=== PATIENT | female | born 1955 | race Caucasian/White ===

== ENCOUNTER → 2016-09-18 | Outpatient (REF) | payer MEDICARE, OTHER ==
[~2016-09-18] MED LIST: ACET50TA PO; AMBIEN PO; ASPI81TA4 PO; B COTAB PO; BACL10TA2 PO; CEFT500T PO; CIMZ200K SC; COMBIVENT INHALER INH; CYMB60CA3 PO; INSUH10VL INJ; INSUH10VL SC; INSULANT SC; LANTINJ4 SC; LIAL1.2T PO; LYRI75CA PO; METF500T PO; METFORMIN PO; MULTIVIT PO; NEURONTIN PO; OMEG12002 PO; PLET50TA3 PO; PRED20TA PO; RAMI10CA PO; SILV1CRE19 TOP; SPIREVA INH; SPRIVA INH; Spiriva Inhaler; TALWIN NX PO; VICO7.5T11 PO; VIT E PO; VIT250TA PO; VITAMIN D PO; [UNRECOGNIZED DRUG - CODE] PO; [UNRECOGNIZED DRUG - CODE] TOP; fenofibrate PO
[2016-09-18 17:46] LABS: MAGNESIUM LEVEL 1.8 MG/DL (1.8-2.4)
== END ==
LOC: M SFHCCLAY 11:26
PROVIDERS: ATTEND Nurse Practitioner Family
DX: E78.4 Other hyperlipidemia (principal); E11.40 Type 2 diabetes mellitus with diabetic neuropathy, unspecified; Z98.890 Other specified postprocedural states; E55.9 Vitamin D deficiency, unspecified

== ENCOUNTER → 2016-09-21 | Outpatient (REF) | payer MEDICARE, OTHER | LOC: M SFHCCLAY 16:40 | PROVIDERS: ATTEND Nurse Practitioner Family | DX: E78.4 Other hyperlipidemia (principal); E11.40 Type 2 diabetes mellitus with diabetic neuropathy, unspecified; E55.9 Vitamin D deficiency, unspecified; Z98.890 Other specified postprocedural states | CPT/HCPCS: 82043; 84156; G0463 ==

== ENCOUNTER → 2017-01-07 | Outpatient (REF) | payer MEDICARE, OTHER ==
[~2017-01-07] MED LIST changes: +PERC10TA26 PO
== END ==
LOC: M LAB REF 14:50
PROVIDERS: ATTEND Podiatrist
DX: L97.512 Non-pressure chronic ulcer of other part of right foot with fat layer exposed (principal)

== ENCOUNTER 2017-01-14 16:35 | Emergency (ER) | payer MEDICARE, BC, OTHER ==
[~2017-01-14] VITALS: Ht 165.1 cm; Wt 145.4 kg
[~2017-01-14 16:35] MED LIST changes: -PERC10TA26 PO
[2017-01-14] MEDS ORDERED: PERC10TA26 PO (17:06)
[2017-01-14] MEDS ORDERED: methylPREDNISolone INJ 125 MG/2 ML VIAL (J2930) IV ONE (19:00)
[2017-01-14] MEDS ORDERED: ASPIRIN 81 MG CHEW TABLET PO ONE (19:00)
[2017-01-14] MEDS ORDERED: FUROSEMIDE 100 MG/10 ML VIAL (J1940) IV ONE (19:00)
[2017-01-14 19:44] LABS: ALBUMIN/GLOBULIN RATIO 0.75 (1.00-1.93); ANION GAP 9 MEQ/L (8-16); BILIRUBIN,DIRECT 0.1 MG/DL (0.0-0.2); BILIRUBIN,TOTAL 0.3 MG/DL (0.2-1.0); BLOOD UREA NITROGEN 30 MG/DL (7-18); CALCIUM LEVEL 8.4 MG/DL (8.8-10.2); CARBON DIOXIDE LEVEL 22 MEQ/L (21-32); CHLORIDE LEVEL 112 MEQ/L (98-107); GLOMERULAR FILTRATION RATE 40.7 (>45); GLUCOSE, FASTING 152 MG/DL (80-110); SODIUM LEVEL 143 MEQ/L (136-145)
[2017-01-14 19:45] LABS: POTASSIUM SERUM 5.7 MEQ/L (3.5-5.1)
[2017-01-14 19:48] LABS: ADD MORPHOLOGY? YES; BASO # 0.1 K/mm3 (0.0-0.2); BASO % 1.4 % (0.0-1.0); EOS # 0.4 K/mm3 (0.0-0.50); EOS % 4.9 % (0.0-3.0); LARGE UNSTAINED CELL # 0.3 K/mm3 (0.0-0.4); LARGE UNSTAINED CELL % 3.5 % (0.0-4.0); LYMPH # 1.8 K/mm3 (1.5-4.5); LYMPH % 16.8 % (24.0-44.0); MEAN CORPUSCULAR HEMOGLOBIN 24.2 pg (27.0-33.0); MEAN CORPUSCULAR HGB CONC 29.5 g/dl (32.0-36.5); MEAN CORPUSCULAR VOLUME 82.1 fl (80.0-96.0); MONO # 0.8 K/mm3 (0.0-0.8); MONO % 8.6 % (0.0-5.0); NEUTROPHILS # 5.7 K/mm3 (1.8-7.7); NEUTROPHILS % 64.7 % (36.0-66.0); PLATELET COUNT, AUTOMATED 351 k/mm3 (150-450); RED CELL DISTRIBUTION WIDTH 14.7 % (11.5-14.5); WHITE BLOOD COUNT 8.8 K/mm3 (4.0-10.0)
[2017-01-14] MEDS: IPRATROPIUM 0.5MG/ALBUTEROL 2.5MG INH SOL UD 3ML (DUONEB)(J7620) NEB PRN ×2 (20:21→20:30)
[2017-01-14 20:30] VITALS: BP 148/78
[2017-01-14 20:37] LABS: ANISOCYTOSIS 1+; HYPOCHROMASIA 2+
--- NOTE | 2017-01-14 21:41 | REP ---
ABDOMINAL SERIES: Supine and erect views of the abdomen demonstrate no free air and no definite small bowel obstruction. Mild distention of the colon is noted with mild internal fecal material in the rectosigmoid colon. Metallic clips are seen in the right upper quadrant. There are degenerative changes of the spine. There is bibasilar fibroatelectatic change in each lung base. There is chronic elevation of the right hemidiaphragm. The heart is mildly enlarged. IMPRESSION: No free air and no definite small bowel obstruction. Mild distention of the colon with mild fecal material in the rectosigmoid. No acute infiltrate is seen in either lung. Signed by Ibrahima Avila MD 01/15/2017 12:36 P
--- NOTE | 2017-01-15 16:00 | ECGEPIP ---
Stationary ECG Study [facility] - ED Test Date: 2017-01-14 Pat Name: CARLOS BECKWITH Department: Room: - Gender: F Halal Butcher: KraftB: 1955 Requested By: HOLLY HO Order Number: [id number] Reading MD: Paulo Heard Measurements Intervals [place] Rate: 57 P: OK: 0 QRS: -31 QRSD: 98 T: 64 QT: 429 QTc: 418 Interpretive Statements SUPRAVENTRICULAR BRADYCARDIA INDETERMINATE AXIS LOW QRS VOLTAGE IN PRECORDIAL LEADS ANTEROSEPTAL MYOCARDIAL INFARCTION, PROBABLY OLD NO PRIORS Electronically Signed On 01-15-2017 16:00:22 EDT by Paulo Heard
== END 2017-01-14 21:09 | disposition home or self-care (01) ==
LOC: M ED 16:35
DX: R06.02 Shortness of breath (principal); E11.9 Type 2 diabetes mellitus without complications; I10 Essential (primary) hypertension; Z72.0 Tobacco use
CPT/HCPCS: 36415; 74022; 80048; 80076; 82550; 82553; 84484; 85025; 87040; 93005; 94640; 94760; 96374; 96375; 99284; J1940; J2930

== ENCOUNTER → 2017-03-20 | Outpatient (REF) | payer MEDICARE, OTHER ==
[~2017-03-20] MED LIST changes: +PERC10TA26 PO
== END ==
LOC: M SFHCCLAY 11:38
PROVIDERS: ATTEND Nurse Practitioner Family
DX: E11.69 Type 2 diabetes mellitus with other specified complication (principal); E78.5 Hyperlipidemia, unspecified; E55.9 Vitamin D deficiency, unspecified

== ENCOUNTER → 2017-03-20 | Outpatient (REF) | payer MEDICARE, OTHER ==
[2017-03-20 17:43] LABS: ALBUMIN 3.7 GM/DL (3.2-5.2); CALCIUM LEVEL 9.1 MG/DL (8.8-10.2); CREATININE FOR GFR 1.02 MG/DL (0.55-1.02); GLOMERULAR FILTRATION RATE 58.5 (>45); MAGNESIUM LEVEL 1.9 MG/DL (1.8-2.4); PHOSPHORUS LEVEL 5.4 MG/DL (2.5-4.9); POTASSIUM SERUM 4.8 MEQ/L (3.5-5.1)
== END ==
LOC: M LAB REF 16:36
PROVIDERS: ATTEND Internal Medicine Cardiovascular Disease
DX: I11.0 Hypertensive heart disease with heart failure (principal); E11.69 Type 2 diabetes mellitus with other specified complication; E78.5 Hyperlipidemia, unspecified; E55.9 Vitamin D deficiency, unspecified

== ENCOUNTER → 2017-03-29 | Outpatient (REF) | payer MEDICARE, OTHER | LOC: M LAB REF 16:26 | PROVIDERS: ATTEND Nurse Practitioner Family | DX: E11.65 Type 2 diabetes mellitus with hyperglycemia (principal); Z23 Encounter for immunization | CPT/HCPCS: 82043; 90686; G0008; G0463 ==

== ENCOUNTER → 2017-09-27 | Outpatient (REF) | payer MEDICARE, OTHER ==
[2017-09-27 16:33] LABS: HEMATOCRIT 39.3 % (36.0-47.0); HEMOGLOBIN 11.7 g/dl (12.0-15.5); MEAN CORPUSCULAR HEMOGLOBIN 22.1 pg (27.0-33.0); MEAN CORPUSCULAR HGB CONC 29.8 g/dl (32.0-36.5); MEAN CORPUSCULAR VOLUME 74.3 fl (80.0-96.0); PLATELET COUNT, AUTOMATED 336 10^3/uL (150-450); RED BLOOD COUNT 5.29 10^6/uL (4.00-5.40); RED CELL DISTRIBUTION WIDTH 21.2 % (11.5-14.5); WHITE BLOOD COUNT 6.5 10^3/uL (4.0-10.0)
[2017-09-27 16:48] LABS: ESTIMATED AVERAGE GLUCOSE 163 MG/DL (60-110); HEMOGLOBIN A1c 7.3 %
[2017-09-27 16:50] LABS: ALBUMIN 3.7 GM/DL (3.2-5.2); ALBUMIN/GLOBULIN RATIO 1.03 (1.00-1.93); ALKALINE PHOSPHATASE 82 U/L (45-117); ALT/SGPT 17 U/L (12-78); ANION GAP 7 MEQ/L (8-16); AST/SGOT 20 U/L (7-37); BILIRUBIN,TOTAL 0.4 MG/DL (0.2-1.0); BLOOD UREA NITROGEN 30 MG/DL (7-18); CARBON DIOXIDE LEVEL 29 MEQ/L (21-32); CHLORIDE LEVEL 104 MEQ/L (98-107); CHOLESTEROL LEVEL 145 MG/DL (<200); CHOLESTEROL RISK RATIO 2.416 (<5); CREATININE FOR GFR 0.99 MG/DL (0.55-1.30); GLOMERULAR FILTRATION RATE > 60.0 (>45); GLUCOSE, FASTING 94 MG/DL (70-100); HDL CHOLESTEROL 60 MG/DL (>40); LDL CHOLESTEROL 58.8 MG/DL (<100); NON-HDL-C 85 MG/DL; POTASSIUM SERUM 4.9 MEQ/L (3.5-5.1); SODIUM LEVEL 140 MEQ/L (136-145); TOTAL PROTEIN 7.3 GM/DL (6.4-8.2); TRIGLYCERIDES LEVEL 131 MG/DL (<150)
[2017-09-27 16:51] LABS: TOTAL 25(OH) VITAMIN D 22.9 NG/ML (30.0-100.0)
[2017-09-27 17:04] LABS: MAU/CREAT RATIO 45.3 MCG/MG (0.0-30.0)
== END ==
LOC: M SFHCCLAY 10:32
DX: K21.9 Gastro-esophageal reflux disease without esophagitis (principal); I10 Essential (primary) hypertension; E11.40 Type 2 diabetes mellitus with diabetic neuropathy, unspecified; E78.5 Hyperlipidemia, unspecified; E55.9 Vitamin D deficiency, unspecified
CPT/HCPCS: 80053

== ENCOUNTER → 2017-10-29 | Outpatient (REF) | payer MEDICARE, OTHER ==
[2017-10-29 13:01] LABS: HEMATOCRIT 37.6 % (36.0-47.0); HEMOGLOBIN 11.2 g/dl (12.0-15.5); MEAN CORPUSCULAR HEMOGLOBIN 22.5 pg (27.0-33.0); MEAN CORPUSCULAR HGB CONC 29.8 g/dl (32.0-36.5); MEAN CORPUSCULAR VOLUME 75.7 fl (80.0-96.0); PLATELET COUNT, AUTOMATED 302 10^3/uL (150-450); RED BLOOD COUNT 4.97 10^6/uL (4.00-5.40); WHITE BLOOD COUNT 8.5 10^3/uL (4.0-10.0)
[2017-10-29 13:27] LABS: ANION GAP 6 MEQ/L (8-16); BLOOD UREA NITROGEN 19 MG/DL (7-18); C REACTIVE PROTEIN QUANTITATIV 2.67 MG/DL (0.00-0.30); CALCIUM LEVEL 8.6 MG/DL (8.8-10.2); CARBON DIOXIDE LEVEL 25 MEQ/L (21-32); CHLORIDE LEVEL 106 MEQ/L (98-107); CREATININE FOR GFR 0.89 MG/DL (0.55-1.30); GLOMERULAR FILTRATION RATE > 60.0 (>45); GLUCOSE, FASTING 147 MG/DL (70-100); POTASSIUM SERUM 4.7 MEQ/L (3.5-5.1); SODIUM LEVEL 137 MEQ/L (136-145)
[2017-10-29 13:37] LABS: ERYTHROCYTE SEDIMENTATION RATE 41 mm/hr (0-30)
[2017-10-29 13:42] LABS: ESTIMATED AVERAGE GLUCOSE 160 MG/DL (60-110); HEMOGLOBIN A1c 7.2 %
== END ==
LOC: M LAB REF 12:13
DX: E11.40 Type 2 diabetes mellitus with diabetic neuropathy, unspecified (principal)
CPT/HCPCS: 83036

== ENCOUNTER → 2017-11-07 | Outpatient (CLI) | payer MEDICARE, OTHER, BC ==
[2017-11-11 08:06] LABS: QUANTIFERON GOLD TB Negative (Negative); TB Test (QFT) Antigen 0.04 IU/mL (.); TB Test (QFT) Mitogen 6.41 IU/mL (.); TB Test (QFT) Nil 0.04 IU/mL (.)
== END ==
LOC: M LAB 08:11
DX: K50.80 Crohn's disease of both small and large intestine without complications (principal)

== ENCOUNTER → 2017-11-07 | Outpatient (CLI) | payer MEDICARE, BC, OTHER ==
[~2017-11-07] MED LIST changes: -ACET50TA PO; -AMBIEN PO; -ASPI81TA4 PO; -B COTAB PO; -BACL10TA2 PO; -CEFT500T PO; -CIMZ200K SC; -COMBIVENT INHALER INH; -CYMB60CA3 PO; -INSUH10VL INJ; -INSUH10VL SC; -INSULANT SC; -LANTINJ4 SC; -LIAL1.2T PO; -LYRI75CA PO; -METF500T PO; -METFORMIN PO; -MULTIVIT PO; -NEURONTIN PO; -OMEG12002 PO; -PERC10TA26 PO; -PLET50TA3 PO; -PRED20TA PO; +PROHANCE 279.3MG/ML 15ML VIAL (A9576) As Ordered; +PROHANCE 279.3MG/ML 5ML VIAL (A9576) As Ordered; -RAMI10CA PO; -SILV1CRE19 TOP; -SPIREVA INH; -SPRIVA INH; -Spiriva Inhaler; -TALWIN NX PO; -VICO7.5T11 PO; -VIT E PO; -VIT250TA PO; -VITAMIN D PO; -[UNRECOGNIZED DRUG - CODE] PO; -[UNRECOGNIZED DRUG - CODE] TOP; -fenofibrate PO
== END ==
LOC: M RAD 07:39
DX: R60.0 Localized edema (principal); E11.40 Type 2 diabetes mellitus with diabetic neuropathy, unspecified; K50.80 Crohn's disease of both small and large intestine without complications
CPT/HCPCS: A9576

== ENCOUNTER → 2017-12-24 | Outpatient (REF) | payer MEDICARE, OTHER | LOC: M LAB REF 17:15 | DX: E11.621 Type 2 diabetes mellitus with foot ulcer (principal); L97.522 Non-pressure chronic ulcer of other part of left foot with fat layer exposed | CPT/HCPCS: 87070; 87186 ==

== ENCOUNTER → 2017-12-24 | Outpatient (REF) | payer MEDICARE, OTHER ==
[2017-12-24 18:09] LABS: HEMATOCRIT 37.3 % (36.0-47.0); HEMOGLOBIN 10.5 g/dl (12.0-15.5); MEAN CORPUSCULAR HEMOGLOBIN 22.3 pg (27.0-33.0); MEAN CORPUSCULAR HGB CONC 28.2 g/dl (32.0-36.5); MEAN CORPUSCULAR VOLUME 79.2 fl (80.0-96.0); PLATELET COUNT, AUTOMATED 305 10^3/uL (150-450); RED BLOOD COUNT 4.71 10^6/uL (4.00-5.40); RED CELL DISTRIBUTION WIDTH 18.9 % (11.5-14.5); WHITE BLOOD COUNT 7.6 10^3/uL (4.0-10.0)
[2017-12-24 18:22] LABS: ALKALINE PHOSPHATASE 88 U/L (45-117); ALT/SGPT 19 U/L (12-78); ANION GAP 7 MEQ/L (8-16); AST/SGOT 16 U/L (7-37); BILIRUBIN,TOTAL 0.3 MG/DL (0.2-1.0); BLOOD UREA NITROGEN 21 MG/DL (7-18); CALCIUM LEVEL 8.4 MG/DL (8.8-10.2); CARBON DIOXIDE LEVEL 27 MEQ/L (21-32); CHLORIDE LEVEL 108 MEQ/L (98-107); CREATININE FOR GFR 0.96 MG/DL (0.55-1.30); GLOMERULAR FILTRATION RATE > 60.0 (>45); GLUCOSE, FASTING 160 MG/DL (70-100); SODIUM LEVEL 142 MEQ/L (136-145)
[2017-12-24 18:23] LABS: ALBUMIN 3.2 GM/DL (3.2-5.2); ALBUMIN/GLOBULIN RATIO 0.82 (1.00-1.93); C REACTIVE PROTEIN QUANTITATIV 0.72 MG/DL (0.00-0.30); TOTAL PROTEIN 7.1 GM/DL (6.4-8.2)
[2017-12-24 18:24] LABS: ESTIMATED AVERAGE GLUCOSE 160 MG/DL (60-110); HEMOGLOBIN A1c 7.2 %
[2017-12-24 19:22] LABS: ERYTHROCYTE SEDIMENTATION RATE 28 mm/hr (0-30)
== END ==
LOC: M LAB REF 17:30
DX: E11.621 Type 2 diabetes mellitus with foot ulcer (principal); L97.522 Non-pressure chronic ulcer of other part of left foot with fat layer exposed
CPT/HCPCS: 80053

== ENCOUNTER → 2018-01-30 | Outpatient (REF) | payer MEDICARE, OTHER ==
[2018-01-30 13:43] LABS: BASO # 0.1 10^3/uL (0.0-0.2); BASO % 1.7 % (0.0-1.0); EOS # 0.2 10^3/uL (0.0-0.50); EOS % 3.5 % (0.0-3.0); HEMATOCRIT 37.6 % (36.0-47.0); IMMATURE GRANULOCYTE % 0.3 % (0-3.0); LYMPH # 1.2 10^3/uL (1.5-4.5); LYMPH % 18.6 % (24.0-44.0); MEAN CORPUSCULAR HEMOGLOBIN 22.4 pg (27.0-33.0); MEAN CORPUSCULAR HGB CONC 29.3 g/dl (32.0-36.5); MEAN CORPUSCULAR VOLUME 76.7 fl (80.0-96.0); MONO # 0.8 10^3/uL (0.0-0.8); MONO % 12.8 % (0.0-5.0); NEUTROPHILS # 4.1 10^3/uL (1.8-7.7); NEUTROPHILS % 63.1 % (36.0-66.0); PLATELET COUNT, AUTOMATED 287 10^3/uL (150-450); RED CELL DISTRIBUTION WIDTH 19.8 % (11.5-14.5); WHITE BLOOD COUNT 6.5 10^3/uL (4.0-10.0)
[2018-01-30 14:06] LABS: ANION GAP 9 MEQ/L (8-16); BLOOD UREA NITROGEN 28 MG/DL (7-18); C REACTIVE PROTEIN QUANTITATIV 0.57 MG/DL (0.00-0.30); CALCIUM LEVEL 8.9 MG/DL (8.8-10.2); CARBON DIOXIDE LEVEL 27 MEQ/L (21-32); CHLORIDE LEVEL 106 MEQ/L (98-107); CREATININE FOR GFR 0.86 MG/DL (0.55-1.30); GLOMERULAR FILTRATION RATE > 60.0 (>45); GLUCOSE, FASTING 133 MG/DL (70-100); SODIUM LEVEL 142 MEQ/L (136-145)
[2018-01-30 14:11] LABS: POTASSIUM SERUM 5.6 MEQ/L (3.5-5.1)
[2018-01-30 14:28] LABS: ERYTHROCYTE SEDIMENTATION RATE 35 mm/hr (0-30)
== END ==
LOC: M SFHCPLAZ 10:58
DX: L97.529 Non-pressure chronic ulcer of other part of left foot with unspecified severity (principal); L97.522 Non-pressure chronic ulcer of other part of left foot with fat layer exposed (principal); E11.621 Type 2 diabetes mellitus with foot ulcer; E11.40 Type 2 diabetes mellitus with diabetic neuropathy, unspecified
CPT/HCPCS: 80048

== ENCOUNTER → 2018-02-14 | Outpatient (REF) | payer MEDICARE, OTHER ==
[2018-02-14 19:45] LABS: POTASSIUM SERUM 5.5 MEQ/L (3.5-5.1)
== END ==
LOC: M SFHCCLAY 11:33
DX: I10 Essential (primary) hypertension (principal)
CPT/HCPCS: 84132

== ENCOUNTER → 2018-09-26 | Outpatient (REF) | payer MEDICARE, OTHER ==
[~2018-09-26] MED LIST changes: +AMBIEN PO; +ASPI81TA4 PO; +B COTAB PO; +BACL10TA2 PO; +CEFT500T PO; +CIMZ200K SC; +COMBIVENT INHALER INH; +CYMB60CA3 PO; +INSUH10VL INJ; +INSUH10VL SC; +INSULANT SC; +LANTINJ4 SC; +LIAL1.2T PO; +LYRI75CA PO; +MAPA500T17 PO; +METF500T PO; +METFORMIN PO; +MULTIVIT PO; +NEURONTIN PO; +OMEG12002 PO; +PERC10TA26 PO; +PLET50TA3 PO; +PRED20TA PO; -PROHANCE 279.3MG/ML 15ML VIAL (A9576) As Ordered; -PROHANCE 279.3MG/ML 5ML VIAL (A9576) As Ordered; +RAMI10CA PO; +SILV1CRE19 TOP; +SPIREVA INH; +SPRIVA INH; +Spiriva Inhaler; +TALWIN NX PO; +VICO7.5T11 PO; +VIT E PO; +VIT250TA PO; +VITAMIN D PO; +[UNRECOGNIZED DRUG - CODE] PO; +[UNRECOGNIZED DRUG - CODE] TOP; +fenofibrate PO
[2018-09-26 18:08] LABS: BASO # 0.2 10^3/uL (0.0-0.2); BASO % 2.1 % (0.0-1.0); EOS # 0.2 10^3/uL (0.0-0.50); HEMATOCRIT 43.9 % (36.0-47.0); HEMOGLOBIN 13.3 g/dl (12.0-15.5); LYMPH # 1.7 10^3/uL (1.5-4.5); LYMPH % 21.7 % (24.0-44.0); MEAN CORPUSCULAR HEMOGLOBIN 26.1 pg (27.0-33.0); MEAN CORPUSCULAR HGB CONC 30.3 g/dl (32.0-36.5); MEAN CORPUSCULAR VOLUME 86.2 fl (80.0-96.0); MONO # 0.8 10^3/uL (0.0-0.8); MONO % 10.7 % (0.0-5.0); NEUTROPHILS # 4.8 10^3/uL (1.8-7.7); NEUTROPHILS % 62.1 % (36.0-66.0); PLATELET COUNT, AUTOMATED 366 10^3/uL (150-450); RED BLOOD COUNT 5.09 10^6/uL (4.00-5.40); WHITE BLOOD COUNT 7.7 10^3/uL (4.0-10.0)
[2018-09-26 18:14] LABS: ALBUMIN 3.7 GM/DL (3.2-5.2); ALT/SGPT 18 U/L (12-78); BILIRUBIN,TOTAL 0.4 MG/DL (0.2-1.0); BLOOD UREA NITROGEN 37 MG/DL (7-18); CALCIUM LEVEL 9.1 MG/DL (8.8-10.2); CARBON DIOXIDE LEVEL 29 MEQ/L (21-32); CHLORIDE LEVEL 106 MEQ/L (98-107); CHOLESTEROL LEVEL 134 MG/DL (<200); CHOLESTEROL RISK RATIO 2.126 (<5); CREATININE FOR GFR 1.42 MG/DL (0.55-1.30); FERRITIN 34 NG/ML (8-252); GLOMERULAR FILTRATION RATE 39.8 (>45); GLUCOSE, FASTING 79 MG/DL (70-100); HDL CHOLESTEROL 63 MG/DL (>40); IRON (FE) 56 UG/DL (50-170); LDL CHOLESTEROL 52 MG/DL (<100); MAGNESIUM LEVEL 1.9 MG/DL (1.8-2.4); NON-HDL-C 71 MG/DL; PERCENT SATURATION 10.3 % (13.2-45.0); POTASSIUM SERUM 5.3 MEQ/L (3.5-5.1); SODIUM LEVEL 141 MEQ/L (136-145); TOTAL IRON BINDING CAPACITY 543 UG/DL (250-450); TOTAL PROTEIN 7.2 GM/DL (6.4-8.2); TRIGLYCERIDES LEVEL 97 MG/DL (<150)
[2018-09-26 18:21] LABS: TOTAL 25(OH) VITAMIN D 27.3 NG/ML (30.0-100.0); VITAMIN B12 LEVEL 892 PG/ML (247-911)
[2018-09-26 18:22] LABS: FOLATE > 24.0 NG/ML (>5.4)
[2018-09-26 18:40] LABS: MAU/CREAT RATIO 115.9 MCG/MG (0.0-30.0)
[2018-09-26 18:50] LABS: HEMOGLOBIN A1c 6.4 %
== END ==
LOC: M SFHCCLAY 13:08
PROVIDERS: ATTEND Nurse Practitioner Family
DX: Z98.84 Bariatric surgery status (principal); E11.69 Type 2 diabetes mellitus with other specified complication; E78.5 Hyperlipidemia, unspecified

== ENCOUNTER 2018-11-25 07:16 | Day surgery (SDC) | payer MEDICARE, BC, OTHER ==
[~2018-11-25] VITALS: Ht 162.6 cm; Wt 131.5 kg
[~2018-11-25 07:16] MED LIST changes: +ALEV220T22 PO; +ASPI-161 PO; +B-COTAB10 PO; +COLE625TAB PO; +MAGN400T2 PO; +METF500T13 PO; +NS 1,000 ML IV ONE; +OMEG12004 PO; +RAMI1CAP26 PO; +STEL90IN SC; +VITA500C24 PO
[2018-11-25] MEDS ORDERED: IRBE75TA5 PO (08:17)
[2018-11-25] MEDS ORDERED: CHLO125TA PO (08:18)
[2018-11-25] MEDS ORDERED: TORS20TA2 PO (08:19)
--- NOTE | 2018-11-25 09:31 | ROOR ---
Patient Name: Mary Meyer Procedure Date: 11/25/2018 8:44 AM Date of : 1955 Age: 63 Room: [facility] Gender: Female Note Status: Finalized Procedure: Colonoscopy Indications: Follow-up of Crohn's disease of the small bowel and colon, Disease activity assessment of Crohn's disease of the small bowel and colon, Assess therapeutic response to therapy of Crohn's disease of the small bowel and colon Providers: Alhaji Albarran MD Referring MD: Lake Rodriguez MD Requesting Provider: Medicines: Monitored Anesthesia Care Complications: No immediate complications. Procedure: Pre-Anesthesia Assessment: - Prior to the procedure, a History and Physical was performed, and patient medications and allergies were reviewed. The patient is competent. The risks and benefits of the procedure and the sedation options and risks were discussed with the patient. All questions were answered and informed consent was obtained. Patient identification and proposed procedure were verified by the physician, the nurse and the anesthesiologist in the procedure room. Mental Status Examination: alert and oriented. Airway Examination: normal oropharyngeal airway and neck mobility. Respiratory Examination: clear to auscultation. CV Examination: normal. Prophylactic Antibiotics: The patient does not require prophylactic antibiotics. Prior Anticoagulants: The patient has taken no previous anticoagulant or antiplatelet agents. ASA Grade Assessment: II - A patient with mild systemic disease. After reviewing the risks and benefits, the patient was deemed in satisfactory condition to undergo the procedure. The anesthesia plan was to use monitored anesthesia care (MAC). Immediately prior to administration of medications, the patient was re-assessed for adequacy to receive sedatives. The heart rate, respiratory rate, oxygen saturations, blood pressure, adequacy of pulmonary ventilation, and response to care were monitored throughout the procedure. The physical status of the patient was re-assessed after the procedure. The Colonoscope was introduced through the anus and advanced to the ileocolonic anastomosis. The colonoscopy was performed without difficulty. The patient tolerated the procedure well. The quality of the bowel preparation was good. The terminal ileum and the rectum were photographed. Scope insertion time was 4 minutes. Scope withdrawal time was 8 minutes. The total duration of the procedure was 12 minutes. Findings: The perianal and digital rectal examinations were normal. Patchy inflammation, graded as Rutgeerts Score i3 (diffuse aphthous ileitis) and characterized by erythema, friability, granularity, linear erosions, pseudopolyps, aphthous ulcerations and serpentine ulcerations was found at 20 cm from the IC Anastomosis and in the mila-terminal Ileum. Biopsies were taken with a cold forceps for histology. Verification of patient identification for the specimen was done by the physician and nurse using the patient's name, date and medical record number. Estimated blood loss was minimal. Normal mucosa was found in the entire colon. Biopsies were taken with a cold forceps for histology. A 5 mm polyp was found in the descending colon. The polyp was sessile. The polyp was removed with a cold biopsy forceps. Resection and retrieval were complete. Non-bleeding external and internal hemorrhoids were found during retroflexion. The hemorrhoids were small. Impression: - Crohn's disease with ileitis. Biopsied. - Normal mucosa in the entire examined colon. Biopsied. - One 5 mm polyp in the descending colon, removed with a cold biopsy forceps. Resected and retrieved. - Non-bleeding external and internal hemorrhoids. Recommendation: - Patient has a contact number available for emergencies. The signs and symptoms of potential delayed complications were discussed with the patient. Return to normal activities tomorrow. Written discharge instructions were provided to the patient. - Resume previous diet. - Continue present medications. - Await pathology results. - Check IBD serology with inflammatory markers at appointment to be scheduled. - Return to GI clinic 2 - 3 weeks. Please call GI clinic @ [phone] for apppointment date and time. - Return to primary care physician. Alhaji Albarran MD Alhaji Albarran MD 11/25/2018 9:30:49 AM Electronically signed by Alhaji Albarran MD Number of Addenda: 0 Note Initiated On: 11/25/2018 8:44 AM Estimated Blood Loss: Estimated blood loss was minimal.
[2018-11-25 09:45] VITALS: BP 139/84
== END 2018-11-25 09:54 | disposition home or self-care (01) ==
LOC: M OPP 07:16
PROVIDERS: ATTEND Internal Medicine Gastroenterology
DX: K50.80 Crohn's disease of both small and large intestine without complications (principal); K63.5 Polyp of colon; K64.8 Other hemorrhoids

== ENCOUNTER → 2018-12-31 | Outpatient (CLI) | payer MEDICARE, BC, OTHER ==
[~2018-12-31] MED LIST changes: +CHLO125TA PO; +IRBE75TA5 PO; -NS 1,000 ML IV ONE; +TORS20TA2 PO
--- NOTE | 2018-12-31 16:17 | REP ---
Clinical: Chronic medical renal disease stage IV. Technique: Real time velarde scale ultrasound examination using curved array transducer. Findings: Bilateral kidneys demonstrate increased central sinus fat and suspected renovascular calcifications without hydronephrosis, nephrolithiasis, cystic or renal lesion. Right kidney measures 13.5 x 5.9 x 6.2 cm. Left kidney measures 12.9 x 5.2 x 5.6 cm. Bladder is normal in appearance and without wall thickening or mass lesion. Bilateral ureteral jets are identified. Prevoid bladder measures 15.7 x 10.7 x 8.3 cm (910 ml). Postvoid bladder measures 3.5 x 2.5 x 1.7 cm (8 ml). Postvoid residual equals 0.8%. Impression: Chronic medical renal disease. No hydronephrosis. Normal bladder. Electronically Signed by Duane Johnson MD 12/31/2018 04:09 P
== END ==
LOC: M RAD 15:19
PROVIDERS: ATTEND Internal Medicine Nephrology
DX: N18.4 Chronic kidney disease, stage 4 (severe) (principal); E11.22 Type 2 diabetes mellitus with diabetic chronic kidney disease; I12.9 Hypertensive chronic kidney disease with stage 1 through stage 4 chronic kidney disease, or unspecified chronic kidney disease

== ENCOUNTER → 2019-01-23 | Outpatient (CLI) | payer MEDICARE, OTHER, BC ==
[2019-01-23 17:00] LABS: BASO # 0.1 10^3/uL (0.0-0.2); EOS # 0.3 10^3/uL (0.0-0.50); EOS % 4.7 % (0.0-3.0); HEMATOCRIT 43.6 % (36.0-47.0); HEMOGLOBIN 13.8 g/dl (12.0-15.5); LYMPH # 1.3 10^3/uL (1.5-4.5); LYMPH % 18.1 % (24.0-44.0); MEAN CORPUSCULAR HGB CONC 31.7 g/dl (32.0-36.5); MEAN CORPUSCULAR VOLUME 85.3 fl (80.0-96.0); MONO # 0.9 10^3/uL (0.0-0.8); MONO % 13.2 % (0.0-5.0); NEUTROPHILS # 4.4 10^3/uL (1.8-7.7); NEUTROPHILS % 61.6 % (36.0-66.0); PLATELET COUNT, AUTOMATED 245 10^3/uL (150-450); RED BLOOD COUNT 5.11 10^6/uL (4.00-5.40); WHITE BLOOD COUNT 7.1 10^3/uL (4.0-10.0)
[2019-01-23 17:29] LABS: ALBUMIN 3.3 GM/DL (3.2-5.2); BILIRUBIN,DIRECT 0.1 MG/DL (0.0-0.2); BILIRUBIN,TOTAL 0.3 MG/DL (0.2-1.0); TOTAL PROTEIN 7.1 GM/DL (6.4-8.2)
== END ==
LOC: M LAB 16:07
PROVIDERS: ATTEND Internal Medicine Gastroenterology
DX: K50.818 Crohn's disease of both small and large intestine with other complication (principal)

== ENCOUNTER → 2019-09-30 | Outpatient (REF) | payer MEDICARE, OTHER ==
[~2019-09-30] MED LIST changes: +IRBE75TA4 PO; -IRBE75TA5 PO
[2019-09-30 16:40] LABS: HEMATOCRIT 47.1 % (36.0-47.0); HEMOGLOBIN 14.5 g/dl (12.0-15.5); MEAN CORPUSCULAR HEMOGLOBIN 27.5 pg (27.0-33.0); MEAN CORPUSCULAR HGB CONC 30.8 g/dl (32.0-36.5); MEAN CORPUSCULAR VOLUME 89.4 fl (80.0-96.0); PLATELET COUNT, AUTOMATED 256 10^3/uL (150-450); RED BLOOD COUNT 5.27 10^6/uL (4.00-5.40); WHITE BLOOD COUNT 5.8 10^3/uL (4.0-10.0)
[2019-09-30 17:07] LABS: ALBUMIN 3.3 GM/DL (3.2-5.2); ALT/SGPT 25 U/L (12-78); BILIRUBIN,TOTAL 0.7 MG/DL (0.2-1.0); BLOOD UREA NITROGEN 15 MG/DL (7-18); CALCIUM LEVEL 8.7 MG/DL (8.8-10.2); CARBON DIOXIDE LEVEL 32 MEQ/L (21-32); CHLORIDE LEVEL 102 MEQ/L (98-107); CHOLESTEROL LEVEL 159 MG/DL (<200); CHOLESTEROL RISK RATIO 2.694 (<5); CREATININE FOR GFR 0.89 MG/DL (0.55-1.30); FERRITIN 34 NG/ML (8-252); GLOMERULAR FILTRATION RATE > 60.0 (>45); GLUCOSE, FASTING 84 MG/DL (70-100); HDL CHOLESTEROL 59 MG/DL (>40); IRON (FE) 133 UG/DL (50-170); LDL CHOLESTEROL 57 MG/DL (<100); NON-HDL-C 100 MG/DL; PERCENT SATURATION 32.3 % (13.2-45.0); POTASSIUM SERUM 3.7 MEQ/L (3.5-5.1); SODIUM LEVEL 142 MEQ/L (136-145); TOTAL IRON BINDING CAPACITY 412 UG/DL (250-450); TRIGLYCERIDES LEVEL 214 MG/DL (<150)
[2019-09-30 17:14] LABS: VITAMIN B12 LEVEL 444 PG/ML (247-911)
[2019-09-30 17:16] LABS: FOLATE > 24.0 NG/ML (>5.4)
[2019-09-30 17:19] LABS: CREATININE, URINE < 13.0 MG/DL; MALB URINE SIEMENS 24.8 MG/L
[2019-09-30 17:28] LABS: HEMOGLOBIN A1c 6.8 %
== END ==
LOC: M SFHCCLAY 13:49
PROVIDERS: ATTEND Nurse Practitioner Family
DX: K21.9 Gastro-esophageal reflux disease without esophagitis (principal); Z23 Encounter for immunization; D64.9 Anemia, unspecified; E11.40 Type 2 diabetes mellitus with diabetic neuropathy, unspecified; E78.5 Hyperlipidemia, unspecified; I10 Essential (primary) hypertension; E55.9 Vitamin D deficiency, unspecified

== ENCOUNTER → 2019-10-01 | Outpatient (CLI) | payer MEDICARE, BC, OTHER ==
--- NOTE | 2019-10-01 14:08 | REP ---
REASON: Tobacco abuse. History of COPD. COMPARISON: None. As per the protocol only lung window images were sent to the read station for interpretation. There are no abnormal nodules, masses, or opacities. Grossly, the mediastinum and pulmonary ambika are within normal limits. Grossly, the imaged upper abdomen and imaged osseous structures are within normal limits. Spinal degenerative changes are noted. IMPRESSION: Lung RADS category 1 negative exam. Electronically Signed by Tom Paulino DO 10/01/2019 02:14 P
== END ==
LOC: M RAD 12:28
PROVIDERS: ATTEND Internal Medicine Pulmonary Disease
DX: Z12.2 Encounter for screening for malignant neoplasm of respiratory organs (principal); Z87.891 Personal history of nicotine dependence; J44.9 Chronic obstructive pulmonary disease, unspecified

== ENCOUNTER → 2020-02-26 | Outpatient (CLI) | payer MEDICARE, BC, OTHER | LOC: M LABSMTC 13:03 | PROVIDERS: ATTEND Family Medicine | DX: Z20.828 Contact with and (suspected) exposure to other viral communicable diseases (principal) | CPT/HCPCS: C9803; U0003 ==

== ENCOUNTER → 2020-07-18 | Outpatient (CLI) | payer MEDICARE, BC, OTHER | LOC: M LAB 12:19 | PROVIDERS: ATTEND Internal Medicine Endocrinology, Diabetes & Metabolism | DX: E11.65 Type 2 diabetes mellitus with hyperglycemia (principal) ==

== ENCOUNTER → 2020-08-09 | Outpatient (CLI) | payer MEDICARE, BC, OTHER ==
[2020-08-09 13:43] LABS: BASO # 0.1 10^3/uL (0.0-0.2); BASO % 1.3 % (0.0-1.0); EOS # 0.2 10^3/uL (0.0-0.5); EOS % 2.9 % (0.0-3.0); HEMATOCRIT 47.1 % (36.0-47.0); HEMOGLOBIN 14.7 g/dl (12.0-15.5); LYMPH # 1.2 10^3/uL (1.5-5.0); LYMPH % 20.2 % (24.0-44.0); MEAN CORPUSCULAR HEMOGLOBIN 27.2 pg (27.0-33.0); MEAN CORPUSCULAR HGB CONC 31.2 g/dl (32.0-36.5); MEAN CORPUSCULAR VOLUME 87.1 fl (80.0-96.0); MONO # 0.7 10^3/uL (0.0-0.8); MONO % 10.9 % (2.0-8.0); NEUTROPHILS % 64.2 % (36.0-66.0); PLATELET COUNT, AUTOMATED 225 10^3/uL (150-450); RED BLOOD COUNT 5.41 10^6/uL (4.00-5.40); WHITE BLOOD COUNT 6.2 10^3/uL (4.0-10.0)
[2020-08-09 14:18] LABS: ALBUMIN 3.5 GM/DL (3.2-5.2); ALT/SGPT 24 U/L (12-78); BILIRUBIN,DIRECT 0.1 MG/DL (0.0-0.2); BILIRUBIN,TOTAL 0.3 MG/DL (0.2-1.0); BLOOD UREA NITROGEN 16 MG/DL (7-18); C REACTIVE PROTEIN QUANTITATIV 0.46 MG/DL (0.00-0.30); CREATININE FOR GFR 0.93 MG/DL (0.55-1.30); GLOMERULAR FILTRATION RATE > 60.0 (>45); TOTAL PROTEIN 7.2 GM/DL (6.4-8.2)
[2020-08-09 16:11] LABS: ERYTHROCYTE SEDIMENTATION RATE 18 mm/hr (0-30)
== END ==
LOC: M LAB 12:52
PROVIDERS: ATTEND Internal Medicine Gastroenterology
DX: K50.818 Crohn's disease of both small and large intestine with other complication (principal)

== ENCOUNTER → 2020-09-22 | Outpatient (REF) | payer MEDICARE, OTHER ==
[2020-09-22 16:25] LABS: HEMATOCRIT 49.1 % (36.0-47.0); MEAN CORPUSCULAR HEMOGLOBIN 27.4 pg (27.0-33.0); MEAN CORPUSCULAR HGB CONC 30.5 g/dl (32.0-36.5); MEAN CORPUSCULAR VOLUME 89.6 fl (80.0-96.0); PLATELET COUNT, AUTOMATED 262 10^3/uL (150-450); RED BLOOD COUNT 5.48 10^6/uL (4.00-5.40); WHITE BLOOD COUNT 5.1 10^3/uL (4.0-10.0)
[2020-09-22 16:45] LABS: ALBUMIN 3.4 GM/DL (3.2-5.2); ALT/SGPT 25 U/L (12-78); BILIRUBIN,TOTAL 0.5 MG/DL (0.2-1.0); BLOOD UREA NITROGEN 16 MG/DL (7-18); CARBON DIOXIDE LEVEL 33 MEQ/L (21-32); CHLORIDE LEVEL 104 MEQ/L (98-107); CHOLESTEROL LEVEL 182 MG/DL (<200); CREATININE FOR GFR 0.92 MG/DL (0.55-1.30); GLOMERULAR FILTRATION RATE > 60.0 (>45); GLUCOSE, FASTING 127 MG/DL (70-100); HDL CHOLESTEROL 70 MG/DL (>40); LDL CHOLESTEROL 74 MG/DL (<100); NON-HDL-C 112 MG/DL; POTASSIUM SERUM 3.9 MEQ/L (3.5-5.1); SODIUM LEVEL 141 MEQ/L (136-145); TOTAL PROTEIN 7.1 GM/DL (6.4-8.2); TRIGLYCERIDES LEVEL 190 MG/DL (<150)
[2020-09-22 16:53] LABS: TOTAL 25(OH) VITAMIN D 31.4 NG/ML (30.0-100.0)
== END ==
LOC: M SFHCCLAY 11:38
PROVIDERS: ATTEND Nurse Practitioner Family
DX: E78.5 Hyperlipidemia, unspecified (principal); I10 Essential (primary) hypertension; E11.40 Type 2 diabetes mellitus with diabetic neuropathy, unspecified; E55.9 Vitamin D deficiency, unspecified

== ENCOUNTER → 2021-02-03 | Outpatient (CLI) | payer MEDICARE, OTHER ==
[2021-02-07 12:10] LABS: ANTINUCLEAR ANTIBODIES DIRECT Negative (Negative)
== END ==
LOC: M WUC 10:21
PROVIDERS: ATTEND Physician Assistant Medical
DX: L40.9 Psoriasis, unspecified (principal); M25.50 Pain in unspecified joint; H15.099 Other scleritis, unspecified eye
CPT/HCPCS: 11042; 36415; 85652; 86038; 86431; G0463

== ENCOUNTER → 2021-03-07 | Outpatient (REF) | payer MEDICARE, OTHER | LOC: M LAB REF 17:25 | PROVIDERS: ATTEND Internal Medicine Nephrology | DX: N18.31 Chronic kidney disease, stage 3a (principal) ==

== ENCOUNTER → 2021-03-29 | Outpatient (CLI) | payer MEDICARE, BC, OTHER ==
[~2021-03-29] MED LIST changes: +CYMB60CA4 PO
[2021-03-29 14:00] LABS: BLOOD UREA NITROGEN 17 MG/DL (7-18); CALCIUM LEVEL 8.9 MG/DL (8.8-10.2); CARBON DIOXIDE LEVEL 33 MEQ/L (21-32); CHLORIDE LEVEL 105 MEQ/L (98-107); CREATININE FOR GFR 0.94 MG/DL (0.55-1.30); GLOMERULAR FILTRATION RATE > 60.0 (>45); GLUCOSE, FASTING 114 MG/DL (70-100); POTASSIUM SERUM 4.3 MEQ/L (3.5-5.1); SODIUM LEVEL 140 MEQ/L (136-145)
== END ==
LOC: M LAB 12:38
PROVIDERS: ATTEND Family Medicine
DX: I11.9 Hypertensive heart disease without heart failure (principal)

== ENCOUNTER → 2021-04-05 | Outpatient (REF) | payer MEDICARE, BC, OTHER | LOC: M LAB REF 13:07 | PROVIDERS: ATTEND Nurse Practitioner Family | DX: N18.31 Chronic kidney disease, stage 3a (principal) ==

== ENCOUNTER → 2021-10-20 | Outpatient (CLI) | payer MEDICARE, BC, OTHER ==
[2021-10-20 15:04] LABS: BASO # 0.1 10^3/uL (0.0-0.2); BASO % 1.5 % (0.0-1.0); EOS # 0.2 10^3/uL (0.0-0.5); EOS % 3.3 % (0.0-3.0); HEMATOCRIT 47.6 % (36.0-47.0); HEMOGLOBIN 14.9 g/dl (12.0-15.5); LYMPH # 1.8 10^3/uL (1.5-5.0); LYMPH % 26.9 % (24.0-44.0); MEAN CORPUSCULAR HEMOGLOBIN 27.7 pg (27.0-33.0); MEAN CORPUSCULAR HGB CONC 31.3 g/dl (32.0-36.5); MEAN CORPUSCULAR VOLUME 88.6 fl (80.0-96.0); MONO # 0.9 10^3/uL (0.0-0.8); MONO % 13.1 % (2.0-8.0); NEUTROPHILS # 3.6 10^3/uL (1.5-8.5); NEUTROPHILS % 54.7 % (36.0-66.0); PLATELET COUNT, AUTOMATED 247 10^3/uL (150-450); RED BLOOD COUNT 5.37 10^6/uL (4.00-5.40); WHITE BLOOD COUNT 6.7 10^3/uL (4.0-10.0)
[2021-10-20 15:29] LABS: ALBUMIN 3.3 GM/DL (3.2-5.2); ALT/SGPT 24 U/L (12-78); BILIRUBIN,DIRECT 0.2 MG/DL (0.0-0.2); BILIRUBIN,TOTAL 0.5 MG/DL (0.2-1.0); BLOOD UREA NITROGEN 14 MG/DL (7-18); C REACTIVE PROTEIN QUANTITATIV 0.62 MG/DL (0.00-0.30); CREATININE FOR GFR 0.96 MG/DL (0.55-1.30); GLOMERULAR FILTRATION RATE > 60.0 (>45); TOTAL PROTEIN 7.2 GM/DL (6.4-8.2)
[2021-10-20 15:59] LABS: ERYTHROCYTE SEDIMENTATION RATE 10 mm/hr (0-30)
== END ==
LOC: M LAB 14:18
PROVIDERS: ATTEND Internal Medicine Gastroenterology
DX: K50.818 Crohn's disease of both small and large intestine with other complication (principal)

== ENCOUNTER → 2021-12-12 | Outpatient (CLI) | payer MEDICARE, BC, OTHER | LOC: M WHC 13:48 | PROVIDERS: ATTEND Family Medicine | DX: Z12.31 Encounter for screening mammogram for malignant neoplasm of breast (principal); Z78.0 Asymptomatic menopausal state; M85.851 Other specified disorders of bone density and structure, right thigh; M85.852 Other specified disorders of bone density and structure, left thigh ==

== ENCOUNTER → 2021-12-23 | Outpatient (CLI) | payer MEDICARE, BC, OTHER | LOC: M SLEEP 20:00 | PROVIDERS: ATTEND Internal Medicine Pulmonary Disease | DX: G47.33 Obstructive sleep apnea (adult) (pediatric) (principal); G47.61 Periodic limb movement disorder ==

== ENCOUNTER → 2022-02-08 | Outpatient (CLI) | payer MEDICARE, BC, OTHER ==
[~2022-02-08] MED LIST changes: +ALLO100T; +ANOR1AER; +COLE625T; +COLE625T17 PO; -COLE625TAB PO; +GABA600T4; +INSULIN PUMP; +POTA-136; +PREG150C; +PROV100T25 PO; +ROPI1TAB3; +SUCR1TAB56; +TALWIN NX; +TORS10TA3 PO; +VITA100093 PO; +VITA400T26 PO; +VITMTA PO; +ZOLP5TAB
== END ==
LOC: M LABSMTC 10:21
PROVIDERS: ATTEND Anesthesiology
DX: Z01.818 Encounter for other preprocedural examination (principal); Z11.52 Encounter for screening for COVID-19

== ENCOUNTER 2022-02-13 10:53 | Day surgery (SDC) | payer MEDICARE, BC, OTHER ==
[~2022-02-13] VITALS: Ht 160 cm; Wt 149.2 kg
[~2022-02-13 10:53] MED LIST changes: +LIDOCAINE 2% 100MG/5ML SDV (FOR ANES.) As Ordered ONE; +NS 1,000 ML IV ONE; +fentaNYL 100 MCG/2 ML INJECTION As Ordered ONE; +propofoL 200 MG/20 ML VIAL As Ordered ONE
[2022-02-13] MEDS ORDERED: propofoL 200 MG/20 ML VIAL As Ordered ONE (13:36)
[2022-02-13 14:20] VITALS: BP 142/74
== END 2022-02-13 14:30 | disposition home or self-care (01) ==
LOC: M OPP 10:53
PROVIDERS: ATTEND Internal Medicine Gastroenterology
DX: K50.10 Crohn's disease of large intestine without complications (principal); K50.00 Crohn's disease of small intestine without complications; K64.4 Residual hemorrhoidal skin tags; K64.8 Other hemorrhoids; K63.89 Other specified diseases of intestine; K52.9 Noninfective gastroenteritis and colitis, unspecified; K29.70 Gastritis, unspecified, without bleeding; Z98.84 Bariatric surgery status; Z79.4 Long term (current) use of insulin; Z79.51 Long term (current) use of inhaled steroids; Z79.891 Long term (current) use of opiate analgesic; Z79.899 Other long term (current) drug therapy; Z88.5 Allergy status to narcotic agent; Z88.8 Allergy status to other drugs, medicaments and biological substances; Z87.891 Personal history of nicotine dependence; Z86.19 Personal history of other infectious and parasitic diseases; I51.9 Heart disease, unspecified; E11.40 Type 2 diabetes mellitus with diabetic neuropathy, unspecified; F32.9 Major depressive disorder, single episode, unspecified; F41.9 Anxiety disorder, unspecified; G47.30 Sleep apnea, unspecified; Z99.89 Dependence on other enabling machines and devices; K74.60 Unspecified cirrhosis of liver; M79.7 Fibromyalgia; M14.672 Charcot's joint, left ankle and foot; G25.81 Restless legs syndrome
CPT/HCPCS: 43239; 45380; 88305; J3010

== ENCOUNTER 2022-03-06 09:51 | Emergency (ER) | payer MEDICARE, BC, OTHER ==
[~2022-03-06] VITALS: Ht 160 cm; Wt 153.9 kg
[~2022-03-06 09:51] MED LIST changes: -ALLO100T; +ALLO100T PO; -ANOR1AER; +ANOR1AER INH; -COLE625T; +COLE625T PO; -LIDOCAINE 2% 100MG/5ML SDV (FOR ANES.) As Ordered ONE; -NS 1,000 ML IV ONE; -POTA-136; +POTA-136 PO; -PREG150C; +PREG150C PO; -ROPI1TAB3; +ROPI1TAB3 PO; -SUCR1TAB56; +SUCR1TAB56 PO; -ZOLP5TAB; +ZOLP5TAB PO; -fentaNYL 100 MCG/2 ML INJECTION As Ordered ONE; -propofoL 200 MG/20 ML VIAL As Ordered ONE
[2022-03-06 10:45] LABS: BASO # 0.1 10^3/uL (0.0-0.2); BASO % 1.7 % (0.0-1.0); EOS # 0.3 10^3/uL (0.0-0.5); EOS % 4.4 % (0.0-3.0); HEMATOCRIT 47.1 % (36.0-47.0); HEMOGLOBIN 13.9 g/dl (12.0-15.5); LYMPH # 1.1 10^3/uL (1.5-5.0); MEAN CORPUSCULAR HEMOGLOBIN 24.9 pg (27.0-33.0); MEAN CORPUSCULAR HGB CONC 29.5 g/dl (32.0-36.5); MEAN CORPUSCULAR VOLUME 84.3 fl (80.0-96.0); MONO # 0.7 10^3/uL (0.0-0.8); MONO % 11.2 % (2.0-8.0); NEUTROPHILS # 4.1 10^3/uL (1.5-8.5); NEUTROPHILS % 64.1 % (36.0-66.0); PLATELET COUNT, AUTOMATED 255 10^3/uL (150-450); RED BLOOD COUNT 5.59 10^6/uL (4.00-5.40); WHITE BLOOD COUNT 6.3 10^3/uL (4.0-10.0)
[2022-03-06] MEDS ORDERED: APIXABAN 5 MG TAB (ELIQUIS) PO ONE (10:55)
[2022-03-06] MEDS ORDERED: DIGOXIN INJ 0.5 MG/2 ML AMP (J1160) IV STA (10:56)
[2022-03-06] MEDS ORDERED: SPIRONOLACTONE 12.5MG PER 1/2 TABLET PO ONE (11:00)
[2022-03-06] MEDS ORDERED: atenoloL 25 MG TAB PO ONE ×2 (11:00→13:10)
[2022-03-06 11:17] LABS: RSV AMPLIFICATION NEGATIVE (NEGATIVE)
[2022-03-06 11:32] LABS: BLOOD UREA NITROGEN 17 MG/DL (7-18); CALCIUM LEVEL 8.8 MG/DL (8.8-10.2); CARBON DIOXIDE LEVEL 31 MEQ/L (21-32); CHLORIDE LEVEL 105 MEQ/L (98-107); CREATININE FOR GFR 0.89 MG/DL (0.55-1.30); GLOMERULAR FILTRATION RATE > 60.0 (>45); GLUCOSE, FASTING 60 MG/DL (70-100); MAGNESIUM LEVEL 2.1 MG/DL (1.8-2.4); NT-PRO BNP 278 PG/ML (<125); POTASSIUM SERUM 4.4 MEQ/L (3.5-5.1); SODIUM LEVEL 138 MEQ/L (136-145)
[2022-03-06] MEDS ORDERED: DIGOXIN INJ 0.5 MG/2 ML AMP (J1160) IV ONE ×2 (13:10→14:40)
[2022-03-06] MEDS ORDERED: PERCOCET 5MG/325MG TAB PO ONE (13:10)
[2022-03-06 13:24] VITALS: BP 149/101
[2022-03-06] MEDS ORDERED: TORS10TA3 PO (16:23)
[2022-03-06] MEDS ORDERED: TORS20TA2 PO (16:27)
[2022-03-06] MEDS ORDERED: SPIR-10 PO (16:27)
[2022-03-06] MEDS ORDERED: DIGO0.253 PO (16:27)
[2022-03-06] MEDS ORDERED: ATEN50TA2 PO (16:27)
[2022-03-06] MEDS ORDERED: ELIQ5TAB PO (16:27)
[2022-03-06 16:31] VITALS: BP 124/61
== END 2022-03-06 17:09 | disposition home or self-care (01) ==
LOC: EDBD 09:51 → M ED 09:51
DX: I48.91 Unspecified atrial fibrillation (principal); I50.9 Heart failure, unspecified; E11.9 Type 2 diabetes mellitus without complications; I11.0 Hypertensive heart disease with heart failure; E78.5 Hyperlipidemia, unspecified; J44.9 Chronic obstructive pulmonary disease, unspecified; G47.33 Obstructive sleep apnea (adult) (pediatric); Z88.5 Allergy status to narcotic agent; Z88.8 Allergy status to other drugs, medicaments and biological substances; Z98.84 Bariatric surgery status
CPT/HCPCS: 71045; 80048; 83735; 83880; 84443; 84484; 85025; 87631; 93005; 93041; 94760; 96374; 96375; 96376; 99285; J1160

== ENCOUNTER 2022-03-13 16:03 | Inpatient (IN) | payer MEDICARE, OTHER, BC ==
[~2022-03-13] VITALS: Ht 160 cm; Wt 150.9 kg
[~2022-03-13 16:03] MED LIST changes: +ATEN50TA2 PO; +DIGO0.253 PO; +ELIQ5TAB PO; +SPIR-10 PO
[2022-03-13 17:19] LABS: BASO # 0.1 10^3/uL (0.0-0.2); BASO % 1.7 % (0.0-1.0); EOS # 0.3 10^3/uL (0.0-0.5); EOS % 4.1 % (0.0-3.0); LYMPH # 1.4 10^3/uL (1.5-5.0); LYMPH % 18.2 % (24.0-44.0); MEAN CORPUSCULAR HGB CONC 29.2 g/dl (32.0-36.5); MEAN CORPUSCULAR VOLUME 85.6 fl (80.0-96.0); MONO # 0.9 10^3/uL (0.0-0.8); MONO % 11.5 % (2.0-8.0); NEUTROPHILS # 4.8 10^3/uL (1.5-8.5); PLATELET COUNT, AUTOMATED 298 10^3/uL (150-450); RED BLOOD COUNT 5.61 10^6/uL (4.00-5.40); WHITE BLOOD COUNT 7.6 10^3/uL (4.0-10.0)
[2022-03-13 17:48] LABS: CPK CREATINE PHOSPHOKINASE 150 U/L (26-192)
[2022-03-13 17:51] LABS: ALBUMIN 3.2 GM/DL (3.2-5.2); ALT/SGPT 24 U/L (12-78); BILIRUBIN,DIRECT < 0.1 MG/DL (0.0-0.2); BILIRUBIN,TOTAL 0.3 MG/DL (0.2-1.0); BLOOD UREA NITROGEN 28 MG/DL (7-18); CALCIUM LEVEL 8.7 MG/DL (8.8-10.2); CARBON DIOXIDE LEVEL 34 MEQ/L (21-32); CHLORIDE LEVEL 105 MEQ/L (98-107); CREATININE FOR GFR 1.44 MG/DL (0.55-1.30); GLOMERULAR FILTRATION RATE 38.7 (>45); GLUCOSE, FASTING 93 MG/DL (70-100); NT-PRO BNP 1131 PG/ML (<125); POTASSIUM SERUM 4.7 MEQ/L (3.5-5.1); SODIUM LEVEL 141 MEQ/L (136-145)
[2022-03-13] MEDS ORDERED: FUROSEMIDE 100MG/10ML VIAL (J1940) IV ONE (18:50)
[2022-03-13 19:04] LABS: CPK CREATINE PHOSPHOKINASE 132 U/L (26-192)
[2022-03-13] MEDS ORDERED: GABA-282 PO (19:15)
[2022-03-13] MEDS ORDERED: ATEN50TA2 PO (19:15)
[2022-03-13] MEDS ORDERED: DIGO0.253 PO (19:15)
[2022-03-13] MEDS ORDERED: ELIQ5TAB PO (19:15)
[2022-03-13] MEDS ORDERED: GABA600T4 PO (19:24)
[2022-03-13] MEDS ORDERED: SPIR-10 PO (19:24)
[2022-03-13] MEDS ORDERED: TORS20TA2 PO (19:24)
[2022-03-13] MEDS ORDERED: HOME MED LIST COMPLETE! XX SCH (19:25)
[2022-03-13] MEDS ORDERED: PERCOCET 5MG/325MG TAB PO PRN (19:35)
[2022-03-13] MEDS ORDERED: COLESEVELAM 625 MG TAB (WELCHOL) PO PRN (19:35)
[2022-03-13] MEDS: SALMETEROL DISKUS 50MCG INHALER (SEREVENT) INH SCH (20:00)
[2022-03-13 20:05] LABS: APPEARANCE, URINE MANUAL CLEAR (CLEAR); COLOR, URINE MANUAL YELLOW (YELLOW)
[2022-03-13 20:07] LABS: BILIRUBIN, URINE MANUAL NEGATIVE (NEGATIVE); BLOOD URINE MANUAL NEGATIVE (NEGATIVE); GLUCOSE, URINE (UA) MANUAL NEGATIVE (NEGATIVE); KETONE, URINE MANUAL NEGATIVE (NEGATIVE); NITRITE, URINE MANUAL NEGATIVE (NEGATIVE); PROTEIN, URINE MANUAL TRACE mg/dL (NEGATIVE); SPECIFIC GRAVITY,URINE MANUAL 1.015 (1.002-1.035); UROBILINOGEN, URINE MANUAL NORMAL (NORMAL)
[2022-03-13 20:08] LABS: LEUKOCYTE ESTERASE, URINE MAN NEGATIVE (NEGATIVE)
[2022-03-13] MEDS ORDERED: GLUCAGON INJ 1MG VIAL SC PRN (20:15)
[2022-03-13] MEDS ORDERED: GLUCOSE 4GM CHEW TABLET PO PRN (20:15)
[2022-03-13] MEDS ORDERED: INSULIN LISPRO (NovoLOG) PER UNIT XX PRN (20:15)
[2022-03-13] MEDS ORDERED: DEXTROSE 50% 50 ML SYRINGE IV PRN (20:15)
[2022-03-13 20:22] LABS: AMORPHOUS SEDIMENT, URINE SMALL AMOUNT (NEGATIVE); BACTERIA, URINE NONE SEEN; CREATININE,RANDOM URINE 56.1 MG/DL; HYALINE CAST, URINE 0-1 /lpf (0-1); RBC, URINE 0-1 /hpf (0-3); SQUAMOUS EPITHELIAL CELL URINE SMALL AMOUNT /hpf (SMALL AMT); TOTAL PROTEIN,RANDOM URINE 27.9 MG/DL (0.0-12.0)
[2022-03-13] MEDS ORDERED: PREGABALIN 75 MG CAP(LYRICA) PO SCH (21:00)
[2022-03-13 21:30] VITALS: BP 145/94
[2022-03-13] MEDS: SUCRALFATE 1 GM TAB PO SCH (22:29)
[2022-03-13] MEDS: MAGNESIUM OXIDE 400MG TAB (MAG-OX) PO SCH (22:30)
[2022-03-13] MEDS: rOPINIRole 1MG TAB PO SCH (22:30)
[2022-03-13] MEDS: GABAPENTIN 300 MG CAP PO SCH (22:30)
[2022-03-13] MEDS: APIXABAN 5 MG TAB (ELIQUIS) PO SCH (22:30)
[2022-03-13] MEDS: zolPIDEM TARTRATE 5 MG TAB PO SCH (22:31)
[2022-03-13] MEDS: DOCUSATE SODIUM 100MG CAPSULE PO SCH (22:31)
[2022-03-14] VITALS (25 sets, daily range): BP systolic 94–135; BP diastolic 54–77; O2SAT 83–96
[2022-03-14 05:17] LABS: HEMATOCRIT 47.4 % (36.0-47.0); HEMOGLOBIN 13.7 g/dl (12.0-15.5); MEAN CORPUSCULAR HGB CONC 28.9 g/dl (32.0-36.5); MEAN CORPUSCULAR VOLUME 86.3 fl (80.0-96.0); PLATELET COUNT, AUTOMATED 288 10^3/uL (150-450); RED BLOOD COUNT 5.49 10^6/uL (4.00-5.40); WHITE BLOOD COUNT 6.8 10^3/uL (4.0-10.0)
[2022-03-14 05:28] LABS: INR 1.4; PROTHROMBIN TIME 17.4 SECONDS (12.5-14.5)
[2022-03-14 05:29] LABS: PARTIAL THROMBOPLASTIN TIME 46.6 SECONDS (24.8-34.2)
[2022-03-14 05:39] LABS: CALCIUM LEVEL 8.8 MG/DL (8.8-10.2); CREATININE FOR GFR 1.54 MG/DL (0.55-1.30); GLOMERULAR FILTRATION RATE 35.8 (>45); MAGNESIUM LEVEL 1.9 MG/DL (1.8-2.4)
[2022-03-14] MEDS: TIOTROPIUM INHALER/CAPSULE (SPIRIVA) INH SCH (07:37)
[2022-03-14] MEDS: SALMETEROL DISKUS 50MCG INHALER (SEREVENT) INH SCH ×2 (07:38→21:20)
[2022-03-14 08:14] LABS: DIGOXIN LEVEL 1.3 NG/ML (0.5-2.0)
[2022-03-14] MEDS: FUROSEMIDE 40MG/4ML VIAL (J1940) IV SCH ×3 (08:42→20:38)
[2022-03-14] MEDS: allopurinoL 100 MG TAB PO SCH (08:43)
[2022-03-14] MEDS: DULoxetine 30MG CAPSULE (CYMBALTA) PO SCH (08:44)
[2022-03-14] MEDS: GABAPENTIN 300 MG CAP PO SCH ×3 (08:44→20:36)
[2022-03-14] MEDS: MAGNESIUM OXIDE 400MG TAB (MAG-OX) PO SCH ×2 (08:45→21:00)
[2022-03-14] MEDS: POTASSIUM CHLORIDE 10MEQ SR TABLET PO SCH (08:45)
[2022-03-14] MEDS: rOPINIRole 1MG TAB PO SCH ×2 (08:45→20:35)
[2022-03-14] MEDS: APIXABAN 5 MG TAB (ELIQUIS) PO SCH ×2 (08:46→20:35)
[2022-03-14] MEDS: DOCUSATE SODIUM 100MG CAPSULE PO SCH ×2 (08:46→20:35)
[2022-03-14] MEDS: SUCRALFATE 1 GM TAB PO SCH ×3 (08:51→20:36)
[2022-03-14] MEDS ORDERED: SPIRONOLACTONE 12.5MG PER 1/2 TABLET PO SCH (09:00)
[2022-03-14] MEDS ORDERED: DIGOXIN 0.25 MG TAB PO SCH (09:00)
[2022-03-14] MEDS ORDERED: DIGOXIN 0.125 MG TAB PO SCH (09:00)
[2022-03-14] MEDS ORDERED: atenoloL 50 MG TAB PO SCH (09:00)
[2022-03-14 12:45] LABS: ABG BASE EXCESS 6.3 (-2.0-2.0); ABG HCO3 33.5 MEQ/L (22.0-26.0); ABG PARTIAL PRESSURE CO2 58.8 mmHg (35.0-45.0); ABG STANDARD HCO3 30.1 MEQ/L (22.0-26.0); ABG TOTAL CO2 35.3 MEQ/L (23.0-31.0); ABG pH (ARTERIAL) 7.373 UNITS (7.350-7.450)
[2022-03-14] MEDS ORDERED: ATROPINE SULF 1MG/10ML SYRINGE (J0461) IV STA (14:58)
[2022-03-14] MEDS: ACETAMINOPHEN TAB 650MG DOSE (2X325MG) PO PRN (16:50)
[2022-03-14] MEDS: zolPIDEM TARTRATE 5 MG TAB PO SCH (20:35)
[2022-03-14] MEDS: bisoproloL fumarate 5 MG TAB PO SCH (20:37)
[2022-03-15] VITALS (14 sets, daily range): BP systolic 92–134; BP diastolic 53–60; O2SAT 88–97
[2022-03-15] MEDS: UNRESOLVED CLARIFICATION ENTRY XX SCH (00:01)
[2022-03-15] MEDS: ACETAMINOPHEN TAB 650MG DOSE (2X325MG) PO PRN (04:46)
[2022-03-15] MEDS ORDERED: BISOPROLOL FUM 2.5 MG PER 1/2TAB PO ONE (05:05)
[2022-03-15 06:07] LABS: HEMATOCRIT 44.5 % (36.0-47.0); HEMOGLOBIN 13.2 g/dl (12.0-15.5); MEAN CORPUSCULAR HGB CONC 29.7 g/dl (32.0-36.5); MEAN CORPUSCULAR VOLUME 84.3 fl (80.0-96.0); PLATELET COUNT, AUTOMATED 295 10^3/uL (150-450); RED BLOOD COUNT 5.28 10^6/uL (4.00-5.40); WHITE BLOOD COUNT 7.8 10^3/uL (4.0-10.0)
[2022-03-15 06:43] LABS: CALCIUM LEVEL 8.8 MG/DL (8.8-10.2); CREATININE FOR GFR 1.53 MG/DL (0.55-1.30); POTASSIUM SERUM 4.3 MEQ/L (3.5-5.1)
[2022-03-15 06:44] LABS: MAGNESIUM LEVEL 2.1 MG/DL (1.8-2.4)
[2022-03-15] MEDS: SALMETEROL DISKUS 50MCG INHALER (SEREVENT) INH SCH ×2 (07:39→20:00)
[2022-03-15] MEDS: TIOTROPIUM INHALER/CAPSULE (SPIRIVA) INH SCH (07:39)
[2022-03-15] MEDS: bisoproloL fumarate 5 MG TAB PO SCH (08:12)
[2022-03-15] MEDS: rOPINIRole 1MG TAB PO SCH ×3 (09:00→21:59)
[2022-03-15] MEDS: DULoxetine 30MG CAPSULE (CYMBALTA) PO SCH ×2 (09:00→15:25)
[2022-03-15] MEDS: FUROSEMIDE 40MG/4ML VIAL (J1940) IV SCH ×2 (09:00→15:25)
[2022-03-15] MEDS ORDERED: NS 500 ML IV ONE (09:35)
[2022-03-15] MEDS: MAGNESIUM OXIDE 400MG TAB (MAG-OX) PO SCH ×2 (09:37→21:58)
[2022-03-15] MEDS: SUCRALFATE 1 GM TAB PO SCH ×3 (09:37→21:59)
[2022-03-15] MEDS: DOCUSATE SODIUM 100MG CAPSULE PO SCH ×2 (09:37→21:59)
[2022-03-15] MEDS: APIXABAN 5 MG TAB (ELIQUIS) PO SCH ×2 (09:38→21:59)
[2022-03-15] MEDS: POTASSIUM CHLORIDE 10MEQ SR TABLET PO SCH (09:38)
[2022-03-15] MEDS: GABAPENTIN 300 MG CAP PO SCH ×3 (09:38→21:58)
[2022-03-15] MEDS: allopurinoL 100 MG TAB PO SCH (10:38)
[2022-03-15] MEDS ORDERED: PERCOCET 5MG/325MG TAB PO ONE (14:45)
[2022-03-15] MEDS: zolPIDEM TARTRATE 5 MG TAB PO SCH (21:00)
[2022-03-16] VITALS (13 sets, daily range): BP systolic 111–145; BP diastolic 53–83; PULSE 117; O2SAT 95–97
[2022-03-16] MEDS ORDERED: GABAPENTIN 300 MG CAP PO ONE (03:55)
[2022-03-16] MEDS: ACETAMINOPHEN TAB 650MG DOSE (2X325MG) PO PRN (04:15)
[2022-03-16 05:07] LABS: HEMATOCRIT 48.5 % (36.0-47.0); HEMOGLOBIN 13.5 g/dl (12.0-15.5); MEAN CORPUSCULAR HEMOGLOBIN 25.2 pg (27.0-33.0); MEAN CORPUSCULAR HGB CONC 27.8 g/dl (32.0-36.5); MEAN CORPUSCULAR VOLUME 90.5 fl (80.0-96.0); PLATELET COUNT, AUTOMATED 273 10^3/uL (150-450); RED BLOOD COUNT 5.36 10^6/uL (4.00-5.40); WHITE BLOOD COUNT 7.2 10^3/uL (4.0-10.0)
[2022-03-16 05:41] LABS: CALCIUM LEVEL 8.7 MG/DL (8.8-10.2); CREATININE FOR GFR 1.47 MG/DL (0.55-1.30); GLOMERULAR FILTRATION RATE 37.7 (>45); MAGNESIUM LEVEL 2.2 MG/DL (1.8-2.4); POTASSIUM SERUM 4.2 MEQ/L (3.5-5.1)
[2022-03-16] MEDS: SALMETEROL DISKUS 50MCG INHALER (SEREVENT) INH SCH ×2 (07:52→19:56)
[2022-03-16] MEDS: TIOTROPIUM INHALER/CAPSULE (SPIRIVA) INH SCH (07:52)
[2022-03-16] MEDS: UNRESOLVED CLARIFICATION ENTRY XX SCH (08:00)
[2022-03-16] MEDS ORDERED: PERCOCET 5MG/325MG TAB PO ONE (08:10)
[2022-03-16] MEDS ORDERED: BISOPROLOL FUM 2.5 MG PER 1/2TAB PO ONE (08:30)
[2022-03-16] MEDS: SUCRALFATE 1 GM TAB PO SCH ×3 (08:32→20:52)
[2022-03-16] MEDS: POTASSIUM CHLORIDE 10MEQ SR TABLET PO SCH (08:33)
[2022-03-16] MEDS: APIXABAN 5 MG TAB (ELIQUIS) PO SCH ×2 (08:33→20:53)
[2022-03-16] MEDS: DOCUSATE SODIUM 100MG CAPSULE PO SCH ×2 (08:33→20:52)
[2022-03-16] MEDS: GABAPENTIN 300 MG CAP PO SCH ×3 (08:33→20:53)
[2022-03-16] MEDS: MAGNESIUM OXIDE 400MG TAB (MAG-OX) PO SCH ×2 (08:33→20:52)
[2022-03-16] MEDS: allopurinoL 100 MG TAB PO SCH (08:37)
[2022-03-16] MEDS ORDERED: FUROSEMIDE 40MG/4ML VIAL (J1940) IV ONE (08:45)
[2022-03-16] MEDS: FUROSEMIDE 40MG/4ML VIAL (J1940) IV SCH ×2 (10:09→15:29)
[2022-03-16] MEDS: SODIUM CHLORIDE NASAL 0.65% SPRAY BTL (OCEAN) SCH ×2 (12:46→20:53)
[2022-03-16] MEDS ORDERED: BISOPROLOL FUM 2.5 MG PER 1/2TAB PO PRN (15:00)
[2022-03-16] MEDS: rOPINIRole 1MG TAB PO SCH ×2 (15:28→21:00)
[2022-03-16] MEDS: DULoxetine 30MG CAPSULE (CYMBALTA) PO SCH (15:34)
[2022-03-16] MEDS: zolPIDEM TARTRATE 5 MG TAB PO SCH (20:53)
[2022-03-17] VITALS (7 sets, daily range): BP systolic 122–140; BP diastolic 56–70; O2SAT 94–99
[2022-03-17] MEDS: UNRESOLVED CLARIFICATION ENTRY XX SCH (00:32)
[2022-03-17 06:29] LABS: HEMATOCRIT 46.1 % (36.0-47.0); HEMOGLOBIN 13.1 g/dl (12.0-15.5); MEAN CORPUSCULAR HEMOGLOBIN 24.7 pg (27.0-33.0); MEAN CORPUSCULAR HGB CONC 28.4 g/dl (32.0-36.5); PLATELET COUNT, AUTOMATED 270 10^3/uL (150-450); WHITE BLOOD COUNT 7.9 10^3/uL (4.0-10.0)
[2022-03-17 06:53] LABS: CALCIUM LEVEL 8.8 MG/DL (8.8-10.2); CREATININE FOR GFR 1.53 MG/DL (0.55-1.30); MAGNESIUM LEVEL 2.1 MG/DL (1.8-2.4); POTASSIUM SERUM 3.8 MEQ/L (3.5-5.1)
[2022-03-17] MEDS: SALMETEROL DISKUS 50MCG INHALER (SEREVENT) INH SCH (07:20)
[2022-03-17] MEDS: TIOTROPIUM INHALER/CAPSULE (SPIRIVA) INH SCH (07:20)
[2022-03-17] MEDS: DOCUSATE SODIUM 100MG CAPSULE PO SCH (08:44)
[2022-03-17] MEDS: POTASSIUM CHLORIDE 10MEQ SR TABLET PO SCH (08:44)
[2022-03-17] MEDS: MAGNESIUM OXIDE 400MG TAB (MAG-OX) PO SCH (08:44)
[2022-03-17] MEDS: SUCRALFATE 1 GM TAB PO SCH (08:45)
[2022-03-17] MEDS: allopurinoL 100 MG TAB PO SCH (08:45)
[2022-03-17] MEDS: APIXABAN 5 MG TAB (ELIQUIS) PO SCH (08:45)
[2022-03-17] MEDS: GABAPENTIN 300 MG CAP PO SCH (08:45)
[2022-03-17] MEDS: SODIUM CHLORIDE NASAL 0.65% SPRAY BTL (OCEAN) SCH (08:46)
[2022-03-17] MEDS ORDERED: FUROSEMIDE 100MG/10ML VIAL (J1940) IV SCH (09:00)
[2022-03-17] MEDS ORDERED: FURO1INJ14 IV (13:41)
[2022-03-17] MEDS ORDERED: FARX1TAB3 PO (13:41)
[2022-03-17] MEDS ORDERED: BISO5TAB14 PO (13:41)
[2022-03-17] MEDS ORDERED: METO25TA PO (13:41)
== END 2022-03-17 15:00 | disposition home health service (06) | DRG 291 ==
LOC: M ED 16:03 → M ED INP 18:49 → M OBS 21:32 → M PCU 21:37
PROVIDERS: ADMIT Internal Medicine; ATTEND Internal Medicine
DX: I11.0 Hypertensive heart disease with heart failure (principal); I50.33 Acute on chronic diastolic (congestive) heart failure; J96.21 Acute and chronic respiratory failure with hypoxia; N17.9 Acute kidney failure, unspecified; K50.90 Crohn's disease, unspecified, without complications; E66.2 Morbid (severe) obesity with alveolar hypoventilation; Z68.43 Body mass index [BMI] 50.0-59.9, adult; I48.91 Unspecified atrial fibrillation; E11.42 Type 2 diabetes mellitus with diabetic polyneuropathy; J44.9 Chronic obstructive pulmonary disease, unspecified; M10.9 Gout, unspecified; G25.81 Restless legs syndrome; I87.2 Venous insufficiency (chronic) (peripheral); K21.9 Gastro-esophageal reflux disease without esophagitis; E11.51 Type 2 diabetes mellitus with diabetic peripheral angiopathy without gangrene; Z90.49 Acquired absence of other specified parts of digestive tract; Z98.84 Bariatric surgery status; Z79.01 Long term (current) use of anticoagulants; Z79.899 Other long term (current) drug therapy; Z79.4 Long term (current) use of insulin; Z96.41 Presence of insulin pump (external) (internal); Z88.5 Allergy status to narcotic agent; Z88.8 Allergy status to other drugs, medicaments and biological substances; Z91.119 Patient's noncompliance with dietary regimen due to unspecified reason

== ENCOUNTER → 2022-03-28 | Outpatient (REF) | payer MEDICARE, OTHER ==
[~2022-03-28] MED LIST changes: +BISO5TAB14 PO; +FARX1TAB3 PO; +FURO1INJ14 IV; +GABA-282 PO; +GABA600T4 PO; +METO25TA PO
[2022-03-28 19:36] LABS: CALCIUM LEVEL 8.9 MG/DL (8.8-10.2); CREATININE FOR GFR 1.12 MG/DL (0.55-1.30); GLOMERULAR FILTRATION RATE 51.7 (>45); MAGNESIUM LEVEL 2.2 MG/DL (1.8-2.4); POTASSIUM SERUM 4.4 MEQ/L (3.5-5.1)
== END ==
LOC: M LABDRAWC 17:16
PROVIDERS: ATTEND Physician Assistant
DX: I50.32 Chronic diastolic (congestive) heart failure (principal)

== ENCOUNTER → 2022-03-28 | Outpatient (REF) | payer MEDICARE, OTHER ==
[2022-03-28 18:38] LABS: HEMATOCRIT 46.1 % (36.0-47.0); HEMOGLOBIN 13.5 g/dl (12.0-15.5); MEAN CORPUSCULAR HGB CONC 29.3 g/dl (32.0-36.5); MEAN CORPUSCULAR VOLUME 85.2 fl (80.0-96.0); PLATELET COUNT, AUTOMATED 238 10^3/uL (150-450); RED BLOOD COUNT 5.41 10^6/uL (4.00-5.40); WHITE BLOOD COUNT 7.8 10^3/uL (4.0-10.0)
[2022-03-28 21:33] LABS: HEMOGLOBIN A1c 6.6 %
[2022-03-28 21:42] LABS: CALCIUM LEVEL 8.4 MG/DL (8.8-10.2); CREATININE FOR GFR 1.14 MG/DL (0.55-1.30); GLOMERULAR FILTRATION RATE 50.6 (>45); POTASSIUM SERUM 4.6 MEQ/L (3.5-5.1)
[2022-03-28 21:43] LABS: ALBUMIN 3.1 GM/DL (3.2-5.2); BILIRUBIN,TOTAL 0.4 MG/DL (0.2-1.0); TOTAL PROTEIN 6.9 GM/DL (6.4-8.2)
[2022-03-28 21:44] LABS: FREE T4 1.08 NG/DL (0.76-1.46); THYROID STIMULATING HORMONE 1.19 uIU/ML (0.358-3.740)
[2022-03-28 22:00] LABS: CHOLESTEROL RISK RATIO 2.295 (<5); LDL CHOLESTEROL 56.2 MG/DL (<100); PERCENT SATURATION 9.3 % (13.2-45.0)
[2022-03-28 22:35] LABS: TOTAL 25(OH) VITAMIN D 43.5 NG/ML (30.0-100.0)
== END ==
LOC: M SFHCCLAY 15:01
PROVIDERS: ATTEND Nurse Practitioner Family
DX: F51.01 Primary insomnia (principal); L97.219 Non-pressure chronic ulcer of right calf with unspecified severity; E11.40 Type 2 diabetes mellitus with diabetic neuropathy, unspecified; E78.5 Hyperlipidemia, unspecified; I50.32 Chronic diastolic (congestive) heart failure; K50.918 Crohn's disease, unspecified, with other complication; G47.33 Obstructive sleep apnea (adult) (pediatric); E61.1 Iron deficiency; E55.9 Vitamin D deficiency, unspecified

== ENCOUNTER → 2022-03-30 | Outpatient (CLI) | payer MEDICARE, BC, OTHER | LOC: M RAD 14:53 → M LAB 14:53 | PROVIDERS: ATTEND Nurse Practitioner Adult Health | DX: I51.7 Cardiomegaly (principal); R91.8 Other nonspecific abnormal finding of lung field; J44.9 Chronic obstructive pulmonary disease, unspecified ==

== ENCOUNTER → 2022-06-13 | Outpatient (REF) | payer MEDICARE, OTHER ==
[2022-06-13 18:11] LABS: HEMOGLOBIN 13.5 g/dl (12.0-15.5); MEAN CORPUSCULAR HEMOGLOBIN 26.6 pg (27.0-33.0); MEAN CORPUSCULAR HGB CONC 29.3 g/dl (32.0-36.5); MEAN CORPUSCULAR VOLUME 90.7 fl (80.0-96.0); PLATELET COUNT, AUTOMATED 268 10^3/uL (150-450); RED BLOOD COUNT 5.07 10^6/uL (4.00-5.40); WHITE BLOOD COUNT 7.4 10^3/uL (4.0-10.0)
[2022-06-13 18:22] LABS: HEMOGLOBIN A1c 5.9 % (4.0-6.0)
[2022-06-13 18:33] LABS: ALBUMIN 3.1 G/DL (3.2-5.2); BILIRUBIN,TOTAL 0.2 MG/DL (0.3-1.2); CALCIUM LEVEL 8.9 MG/DL (8.3-10.6); CHOLESTEROL RISK RATIO 2.69 (<5); CREATININE FOR GFR 1.22 MG/DL (0.55-1.30); GLOMERULAR FILTRATION RATE 46.8 (>45); HDL CHOLESTEROL 56.4 MG/DL (>40); PERCENT SATURATION 12.3 % (13.2-45.0); TOTAL PROTEIN 6.6 G/DL (5.7-8.2)
[2022-06-13 18:36] LABS: FERRITIN 25.8 NG/ML (7.3-270.7)
[2022-06-14 14:40] LABS: TOTAL 25(OH) VITAMIN D 43.8 NG/ML (20.0-100.0)
== END ==
LOC: M SFHCCLAY 14:01
PROVIDERS: ATTEND Nurse Practitioner Family
DX: E11.40 Type 2 diabetes mellitus with diabetic neuropathy, unspecified (principal); E78.5 Hyperlipidemia, unspecified; E61.1 Iron deficiency; E55.9 Vitamin D deficiency, unspecified; N17.9 Acute kidney failure, unspecified

== ENCOUNTER → 2022-07-10 | Outpatient (CLI) | payer MEDICARE, OTHER, BC | LOC: M RAD 09:49 | PROVIDERS: ATTEND Physician Assistant | DX: L97.911 Non-pressure chronic ulcer of unspecified part of right lower leg limited to breakdown of skin (principal); R68.89 Other general symptoms and signs; I73.9 Peripheral vascular disease, unspecified ==

== ENCOUNTER → 2022-07-31 | Outpatient (CLI) | payer MEDICARE, BC, OTHER | LOC: M RAD 12:15 | PROVIDERS: ATTEND Physician Assistant | DX: L97.911 Non-pressure chronic ulcer of unspecified part of right lower leg limited to breakdown of skin (principal); I87.2 Venous insufficiency (chronic) (peripheral); M79.604 Pain in right leg ==

== ENCOUNTER → 2022-08-14 | Outpatient (POV) | payer MEDICARE, BC, OTHER ==
[~2022-08-14] VITALS: Ht 162.6 cm; Wt 139.0 kg
[2022-08-14 13:10] VITALS: BP 122/70
== END ==
LOC: M IRPOV 13:04
PROVIDERS: ATTEND Radiology Diagnostic Radiology
DX: E11.622 Type 2 diabetes mellitus with other skin ulcer (principal); L97.811 Non-pressure chronic ulcer of other part of right lower leg limited to breakdown of skin; K50.90 Crohn's disease, unspecified, without complications; E11.40 Type 2 diabetes mellitus with diabetic neuropathy, unspecified; I87.301 Chronic venous hypertension (idiopathic) without complications of right lower extremity; I50.9 Heart failure, unspecified; J44.9 Chronic obstructive pulmonary disease, unspecified; R60.0 Localized edema; Z79.899 Other long term (current) drug therapy; Z88.5 Allergy status to narcotic agent; Z88.8 Allergy status to other drugs, medicaments and biological substances

== ENCOUNTER → 2022-09-13 | Outpatient (CLI) | payer MEDICARE, BC, OTHER ==
[2022-09-13 11:24] LABS: BASO # 0.1 10^3/uL (0.0-0.2); BASO % 1.6 % (0.0-1.0); EOS # 0.3 10^3/uL (0.0-0.5); EOS % 4.5 % (0.0-3.0); HEMATOCRIT 43.8 % (36.0-47.0); HEMOGLOBIN 13.6 g/dl (12.0-15.5); LYMPH # 1.2 10^3/uL (1.5-5.0); LYMPH % 18.6 % (24.0-44.0); MEAN CORPUSCULAR HGB CONC 31.1 g/dl (32.0-36.5); MEAN CORPUSCULAR VOLUME 93.4 fl (80.0-96.0); MONO # 0.8 10^3/uL (0.0-0.8); MONO % 13.2 % (2.0-8.0); NEUTROPHILS # 3.8 10^3/uL (1.5-8.5); NEUTROPHILS % 61.8 % (36.0-66.0); PLATELET COUNT, AUTOMATED 262 10^3/uL (150-450); RED BLOOD COUNT 4.69 10^6/uL (4.00-5.40); WHITE BLOOD COUNT 6.2 10^3/uL (4.0-10.0)
[2022-09-13 11:49] LABS: ALBUMIN 3.2 G/DL (3.2-5.2); BILIRUBIN,DIRECT 0.1 MG/DL (<0.4); BILIRUBIN,TOTAL 0.4 MG/DL (0.3-1.2); C REACTIVE PROTEIN QUANTITATIV 0.9 MG/DL (<1.0); CREATININE FOR GFR 1.11 MG/DL (0.55-1.30); GLOMERULAR FILTRATION RATE 52.2 (>45); PERCENT SATURATION 12.2 % (13.2-45.0); TOTAL PROTEIN 6.6 G/DL (5.7-8.2)
[2022-09-13 11:59] LABS: ERYTHROCYTE SEDIMENTATION RATE 67 mm/hr (0-30)
== END ==
LOC: M LAB 10:34
PROVIDERS: ATTEND Internal Medicine Gastroenterology
DX: K50.818 Crohn's disease of both small and large intestine with other complication (principal)

== ENCOUNTER → 2022-09-13 | Outpatient (CLI) | payer MEDICARE, BC, OTHER ==
[2022-09-13 11:47] LABS: HEMOGLOBIN A1c 5.7 % (4.0-6.0)
[2022-09-13 11:50] LABS: CALCIUM LEVEL 9.1 MG/DL (8.3-10.6); CREATININE FOR GFR 1.07 MG/DL (0.55-1.30); GLOMERULAR FILTRATION RATE 54.5 (>45); POTASSIUM SERUM 4.8 MMOL/L (3.5-5.1)
[2022-09-13 11:54] LABS: TOTAL 25(OH) VITAMIN D 54.1 NG/ML (20.0-100.0)
== END ==
LOC: M LAB 10:38
PROVIDERS: ATTEND Nurse Practitioner Family
DX: E11.40 Type 2 diabetes mellitus with diabetic neuropathy, unspecified (principal); E55.9 Vitamin D deficiency, unspecified; I10 Essential (primary) hypertension

== ENCOUNTER → 2022-12-26 | Outpatient (CLI) | payer MEDICARE, BC, OTHER ==
[~2022-12-26] MED LIST changes: -ROPI1TAB3 PO; +ROPI1TAB73 PO
== END ==
LOC: M WHC 13:11
PROVIDERS: ATTEND Nurse Practitioner Family
DX: Z12.31 Encounter for screening mammogram for malignant neoplasm of breast (principal); R92.8 Other abnormal and inconclusive findings on diagnostic imaging of breast

== ENCOUNTER → 2023-03-21 | Outpatient (REF) | payer MEDICARE, OTHER ==
[~2023-03-21] MED LIST changes: -PREG150C PO; +PREG150C2 PO
[2023-03-21 17:26] LABS: BASO # 0.1 10^3/uL (0.0-0.2); BASO % 1.5 % (0.0-1.0); EOS # 0.3 10^3/uL (0.0-0.5); EOS % 3.4 % (0.0-3.0); HEMATOCRIT 44.9 % (36.0-47.0); HEMOGLOBIN 13.4 g/dl (12.0-15.5); LYMPH # 1.6 10^3/uL (1.5-5.0); LYMPH % 19.5 % (24.0-44.0); MEAN CORPUSCULAR HEMOGLOBIN 26.9 pg (27.0-33.0); MEAN CORPUSCULAR HGB CONC 29.8 g/dl (32.0-36.5); MONO # 0.7 10^3/uL (0.0-0.8); MONO % 8.7 % (2.0-8.0); NEUTROPHILS # 5.3 10^3/uL (1.5-8.5); NEUTROPHILS % 66.5 % (36.0-66.0); PLATELET COUNT, AUTOMATED 296 10^3/uL (150-450); RED BLOOD COUNT 4.99 10^6/uL (4.00-5.40)
== END ==
LOC: M SFHCCLAY 13:11
PROVIDERS: ATTEND Nurse Practitioner Family
DX: E11.40 Type 2 diabetes mellitus with diabetic neuropathy, unspecified (principal); I48.91 Unspecified atrial fibrillation; I10 Essential (primary) hypertension; E55.9 Vitamin D deficiency, unspecified; E78.5 Hyperlipidemia, unspecified; K50.918 Crohn's disease, unspecified, with other complication

== ENCOUNTER → 2023-10-02 | Outpatient (REF) | payer MEDICARE, OTHER, BC ==
[~2023-10-02] MED LIST changes: -ASPI-161 PO; +ASPI-615 PO; +IRBE75TA11 PO; -IRBE75TA4 PO; +RAMI10CA64 PO; -RAMI1CAP26 PO
[2023-10-02 18:29] LABS: PERCENT SATURATION 3.2 % (13.2-45.0)
[2023-10-02 18:32] LABS: FERRITIN 5.9 NG/ML (7.3-270.7)
== END ==
LOC: M LAB REF 17:22
PROVIDERS: ATTEND Nurse Practitioner Family
DX: D50.9 Iron deficiency anemia, unspecified (principal)

== ENCOUNTER → 2023-10-15 | Outpatient (REF) | payer MEDICARE, BC ==
[2023-10-15 18:00] LABS: ALBUMIN 2.9 G/DL (3.2-5.2); ALKALINE PHOSPHATASE 92 U/L (46-116); ALT/SGPT 17 U/L (7.0-40); AST/SGOT 19 U/L (<34); BILIRUBIN,TOTAL 0.5 MG/DL (0.3-1.2); BLOOD UREA NITROGEN 15 MG/DL (9-23); CALCIUM LEVEL 8.3 MG/DL (8.3-10.6); CARBON DIOXIDE LEVEL 30 MMOL/L (20-31); CHLORIDE LEVEL 104 MMOL/L (98-107); CHOLESTEROL LEVEL 116 MG/DL (<200); CHOLESTEROL RISK RATIO 2.65 (<5); CREATININE FOR GFR 0.92 MG/DL (0.55-1.30); GLOMERULAR FILTRATION RATE > 60.0 (>45); GLUCOSE, FASTING 134 MG/DL (74-106); HDL CHOLESTEROL 43.7 MG/DL (>40); LDL CHOLESTEROL 49.3 MG/DL (<100); NON-HDL-C 72.3 MG/DL; POTASSIUM SERUM 4.5 MMOL/L (3.5-5.1); SODIUM LEVEL 140 MMOL/L (136-145); TOTAL PROTEIN 6.2 G/DL (5.7-8.2); TRIGLYCERIDES LEVEL 115 MG/DL (<150)
[2023-10-15 18:03] LABS: FREE T4 0.98 NG/DL (0.89-1.76); THYROID STIMULATING HORMONE 1.251 uIU/ML (0.55-4.78)
[2023-10-15 18:04] LABS: TOTAL 25(OH) VITAMIN D 67.4 NG/ML (20.0-100.0)
[2023-10-15 18:11] LABS: HEMOGLOBIN A1c 5.8 % (4.0-6.0)
== END ==
LOC: M SFHCCLAY 13:36
PROVIDERS: ATTEND Nurse Practitioner Family
DX: E11.40 Type 2 diabetes mellitus with diabetic neuropathy, unspecified (principal); I11.0 Hypertensive heart disease with heart failure; E55.9 Vitamin D deficiency, unspecified; E78.5 Hyperlipidemia, unspecified; K50.918 Crohn's disease, unspecified, with other complication; I48.91 Unspecified atrial fibrillation; R11.0 Nausea; I50.32 Chronic diastolic (congestive) heart failure; K21.9 Gastro-esophageal reflux disease without esophagitis; J44.9 Chronic obstructive pulmonary disease, unspecified

== ENCOUNTER → 2023-10-15 | Outpatient (CLI) | payer MEDICARE, BC | LOC: M CLY 13:50 | PROVIDERS: ATTEND Internal Medicine Pulmonary Disease | DX: I51.7 Cardiomegaly (principal); J44.9 Chronic obstructive pulmonary disease, unspecified ==

== ENCOUNTER 2023-11-04 10:14 | Outpatient (CLI) | payer MEDICARE, BC ==
[~2023-11-04] VITALS: Ht 162.6 cm; Wt 129.0 kg
[~2023-11-04 10:14] MED LIST changes: +ALBUTEROL SULFATE 2.5MG/0.5ML INH NEB SOLN INH PRN; +EPINEPHrine INJ 1 MG/ML 1ML AMP IM PRN; +diphenhydrAMINE 50MG/ML VIAL IV PRN; +methylPREDNISolone 125MG 2ML VIAL IV PRN
[2023-11-04 10:40] VITALS: BP 138/78; O2SAT 97
[2023-11-04] MEDS: FERRIC CARBOXYMALTOSE INJ 750 MG in NS 250 ML (>50kg) IV ONE (10:58)
[2023-11-04] MEDS ORDERED: NS 1,000 ML IV SCH (11:00)
[2023-11-04 12:30] VITALS: BP 138/83; O2SAT 98
== END 2023-11-04 12:35 ==
LOC: M INFU 10:14
PROVIDERS: ATTEND Nurse Practitioner Family
DX: D50.9 Iron deficiency anemia, unspecified (principal); Z88.5 Allergy status to narcotic agent; Z88.8 Allergy status to other drugs, medicaments and biological substances
CPT/HCPCS: 96365; J1439

== ENCOUNTER 2023-11-11 10:50 | Outpatient (CLI) | payer MEDICARE, BC ==
[~2023-11-11] VITALS: Ht 162.6 cm; Wt 129.5 kg
[2023-11-11] MEDS ORDERED: NS 1,000 ML IV SCH (11:00)
[2023-11-11 11:05] VITALS: BP 122/78; O2SAT 96
[2023-11-11] MEDS: FERRIC CARBOXYMALTOSE INJ 750 MG in NS 250 ML (>50kg) IV ONE (11:15)
[2023-11-11 12:38] VITALS: BP 134/75; O2SAT 96
== END 2023-11-11 12:40 ==
LOC: M INFU 10:50
PROVIDERS: ATTEND Nurse Practitioner Family
DX: D50.9 Iron deficiency anemia, unspecified (principal); Z88.8 Allergy status to other drugs, medicaments and biological substances; Z88.5 Allergy status to narcotic agent
CPT/HCPCS: 96365; J1439

== ENCOUNTER → 2024-02-07 | Outpatient (REF) | payer MEDICARE, BC ==
[~2024-02-07] MED LIST changes: -ALBUTEROL SULFATE 2.5MG/0.5ML INH NEB SOLN INH PRN; -EPINEPHrine INJ 1 MG/ML 1ML AMP IM PRN; +GABA-1490; +GABA-1490 PO; -GABA600T4; -GABA600T4 PO; -diphenhydrAMINE 50MG/ML VIAL IV PRN; -methylPREDNISolone 125MG 2ML VIAL IV PRN
[2024-02-07 19:05] LABS: BASO # 0.2 10^3/uL (0.0-0.2); EOS # 0.3 10^3/uL (0.0-0.5); EOS % 3.2 % (0.0-3.0); HEMATOCRIT 46.3 % (36.0-47.0); HEMOGLOBIN 13.9 g/dl (12.0-15.5); LYMPH # 1.4 10^3/uL (1.5-5.0); LYMPH % 17.2 % (24.0-44.0); MEAN CORPUSCULAR HEMOGLOBIN 26.4 pg (27.0-33.0); MONO # 0.8 10^3/uL (0.0-0.8); MONO % 10.4 % (2.0-8.0); NEUTROPHILS # 5.2 10^3/uL (1.5-8.5); NEUTROPHILS % 66.4 % (36.0-66.0); PLATELET COUNT, AUTOMATED 299 10^3/uL (150-450); RED BLOOD COUNT 5.26 10^6/uL (4.00-5.40); WHITE BLOOD COUNT 7.9 10^3/uL (4.0-10.0)
[2024-02-07 19:10] LABS: PERCENT SATURATION 8.2 % (13.2-45.0)
[2024-02-07 19:11] LABS: ALBUMIN 3.1 G/DL (3.2-5.2); BILIRUBIN,TOTAL 0.2 MG/DL (0.3-1.2); CALCIUM LEVEL 9.1 MG/DL (8.3-10.6); CHOLESTEROL RISK RATIO 3.03 (<5); CREATININE FOR GFR 1.31 MG/DL (0.55-1.30); GLOMERULAR FILTRATION RATE 42.9 (>45); HDL CHOLESTEROL 49.7 MG/DL (>40); LDL CHOLESTEROL 51.1 MG/DL (<100); NON-HDL-C 101.3 MG/DL; POTASSIUM SERUM 4.2 MMOL/L (3.5-5.1); TOTAL PROTEIN 6.6 G/DL (5.7-8.2)
[2024-02-07 19:15] LABS: FERRITIN 14.7 NG/ML (7.3-270.7)
[2024-02-07 19:16] LABS: FREE T4 1.13 NG/DL (0.89-1.76); THYROID STIMULATING HORMONE 1.442 uIU/ML (0.55-4.78)
[2024-02-07 19:59] LABS: HEMOGLOBIN A1c 6.2 % (4.0-6.0)
== END ==
LOC: M SFHCCLAY 10:00
PROVIDERS: ATTEND Nurse Practitioner Family
DX: Z01.818 Encounter for other preprocedural examination (principal); M17.12 Unilateral primary osteoarthritis, left knee; J44.9 Chronic obstructive pulmonary disease, unspecified; E11.40 Type 2 diabetes mellitus with diabetic neuropathy, unspecified; I11.0 Hypertensive heart disease with heart failure; E55.9 Vitamin D deficiency, unspecified; E78.5 Hyperlipidemia, unspecified; K50.918 Crohn's disease, unspecified, with other complication; I48.91 Unspecified atrial fibrillation; K21.9 Gastro-esophageal reflux disease without esophagitis; H26.9 Unspecified cataract; I73.9 Peripheral vascular disease, unspecified

== ENCOUNTER → 2024-03-02 | Outpatient (CLI) | payer MEDICARE, BC ==
[~2024-03-02] VITALS: Ht 165.1 cm; Wt 127.0 kg
[~2024-03-02] MED LIST changes: +COLE1TA PO; +DIGO5EL PO; +GABA-1172 PO; -GABA-282 PO; +METH-1165 PO; +TIZA2CAP3 PO
[2024-03-02 13:10] VITALS: BP 145/89; O2SAT 93
== END ==
LOC: M PAL 12:55
PROVIDERS: ATTEND Family Medicine
DX: G89.29 Other chronic pain (principal); Z79.891 Long term (current) use of opiate analgesic; G43.909 Migraine, unspecified, not intractable, without status migrainosus; Z51.5 Encounter for palliative care; Z79.01 Long term (current) use of anticoagulants; Z79.84 Long term (current) use of oral hypoglycemic drugs; Z79.620 Long term (current) use of immunosuppressive biologic; Z79.899 Other long term (current) drug therapy; Z79.4 Long term (current) use of insulin; Z88.5 Allergy status to narcotic agent; Z88.8 Allergy status to other drugs, medicaments and biological substances

== ENCOUNTER → 2024-03-26 | Outpatient (CLI) | payer MEDICARE, BC ==
[2024-03-26 15:37] LABS: BASO # 0.1 10^3/uL (0.0-0.2); BASO % 1.3 % (0.0-1.0); EOS # 0.2 10^3/uL (0.0-0.5); EOS % 2.5 % (0.0-3.0); HEMATOCRIT 45.5 % (36.0-47.0); LYMPH # 1.3 10^3/uL (1.5-5.0); LYMPH % 15.5 % (24.0-44.0); MEAN CORPUSCULAR HEMOGLOBIN 27.1 pg (27.0-33.0); MEAN CORPUSCULAR HGB CONC 30.8 g/dl (32.0-36.5); MONO # 0.7 10^3/uL (0.0-0.8); MONO % 8.8 % (2.0-8.0); NEUTROPHILS # 5.9 10^3/uL (1.5-8.5); NEUTROPHILS % 71.3 % (36.0-66.0); PLATELET COUNT, AUTOMATED 251 10^3/uL (150-450); RED BLOOD COUNT 5.17 10^6/uL (4.00-5.40); WHITE BLOOD COUNT 8.3 10^3/uL (4.0-10.0)
[2024-03-26 15:59] LABS: ALKALINE PHOSPHATASE 91 U/L (46-116); ALT/SGPT 15 U/L (7.0-40); AST/SGOT 18 U/L (<34); BILIRUBIN,TOTAL 0.4 MG/DL (0.3-1.2); BLOOD UREA NITROGEN 15 MG/DL (9-23); CALCIUM LEVEL 9.8 MG/DL (8.3-10.6); CARBON DIOXIDE LEVEL 36 MMOL/L (20-31); CHLORIDE LEVEL 103 MMOL/L (98-107); CREATININE FOR GFR 0.94 MG/DL (0.55-1.30); GLOMERULAR FILTRATION RATE > 60.0 (>45); GLUCOSE, FASTING 111 MG/DL (74-106); MAGNESIUM LEVEL 1.9 MG/DL (1.8-2.4); POTASSIUM SERUM 4.9 MMOL/L (3.5-5.1); SODIUM LEVEL 141 MMOL/L (136-145); TOTAL PROTEIN 6.6 G/DL (5.7-8.2)
== END ==
LOC: M EKG 14:54
PROVIDERS: ATTEND Registered Nurse
DX: I48.21 Permanent atrial fibrillation (principal); Z79.899 Other long term (current) drug therapy

== ENCOUNTER → 2024-04-02 | Outpatient (CLI) | payer MEDICARE, BC | LOC: M CARPUL 10:38 | PROVIDERS: ATTEND Registered Nurse | DX: I11.0 Hypertensive heart disease with heart failure (principal) ==

== ENCOUNTER → 2024-10-07 | Outpatient (REF) | payer MEDICARE, BC ==
[~2024-10-07] MED LIST changes: +DIGO50SO PO; -DIGO5EL PO
[2024-10-15 19:38] LABS: CALPROTECTIN STOOL 699 mcg/g (<50)
[2024-10-16 03:57] LABS: PANCREATIC ELASTASE STOOL 134 mcg/g (>200)
== END ==
LOC: M LAB REF 13:49
PROVIDERS: ATTEND Internal Medicine Gastroenterology
DX: K50.80 Crohn's disease of both small and large intestine without complications (principal)

== ENCOUNTER → 2024-10-09 | Outpatient (REF) | payer MEDICARE, BC ==
[2024-10-09 17:44] LABS: HEMATOCRIT 47.2 % (36.0-47.0); HEMOGLOBIN 14.5 g/dl (12.0-15.5); MEAN CORPUSCULAR HEMOGLOBIN 27.6 pg (27.0-33.0); MEAN CORPUSCULAR HGB CONC 30.7 g/dl (32.0-36.5); MEAN CORPUSCULAR VOLUME 89.9 fl (80.0-96.0); PLATELET COUNT, AUTOMATED 303 10^3/uL (150-450); RED BLOOD COUNT 5.25 10^6/uL (4.00-5.40); WHITE BLOOD COUNT 7.5 10^3/uL (4.0-10.0)
[2024-10-09 17:51] LABS: ALBUMIN 3.1 G/DL (3.2-5.2); BILIRUBIN,TOTAL 0.4 MG/DL (0.3-1.2); CHOLESTEROL RISK RATIO 2.92 (<5); CREATININE FOR GFR 0.9 MG/DL (0.55-1.30); GLOMERULAR FILTRATION RATE 69.2 (>45); HDL CHOLESTEROL 55.8 MG/DL (>40); NON-HDL-C 107.2 MG/DL; POTASSIUM SERUM 4.2 MMOL/L (3.5-5.1); TOTAL PROTEIN 6.6 G/DL (5.7-8.2)
[2024-10-09 17:53] LABS: FREE T4 1.14 NG/DL (0.89-1.76); THYROID STIMULATING HORMONE 0.624 uIU/ML (0.55-4.78)
[2024-10-09 17:58] LABS: HEMOGLOBIN A1c 6.2 % (4.0-6.0)
== END ==
LOC: M SFHCCLAY 13:17
PROVIDERS: ATTEND Nurse Practitioner Family
DX: I11.0 Hypertensive heart disease with heart failure (principal); E55.9 Vitamin D deficiency, unspecified; E11.40 Type 2 diabetes mellitus with diabetic neuropathy, unspecified; R19.7 Diarrhea, unspecified; K50.80 Crohn's disease of both small and large intestine without complications

== ENCOUNTER → 2024-10-09 | Outpatient (REF) | payer MEDICARE, BC ==
[2024-10-09 17:46] LABS: BASO # 0.1 10^3/uL (0.0-0.2); BASO % 1.4 % (0.0-1.0); EOS # 0.2 10^3/uL (0.0-0.5); EOS % 2.3 % (0.0-3.0); HEMATOCRIT 47.4 % (36.0-47.0); HEMOGLOBIN 14.4 g/dl (12.0-15.5); LYMPH # 1.4 10^3/uL (1.5-5.0); LYMPH % 17.6 % (24.0-44.0); MEAN CORPUSCULAR HEMOGLOBIN 27.3 pg (27.0-33.0); MEAN CORPUSCULAR HGB CONC 30.4 g/dl (32.0-36.5); MEAN CORPUSCULAR VOLUME 89.9 fl (80.0-96.0); MONO # 0.7 10^3/uL (0.0-0.8); MONO % 9.5 % (2.0-8.0); NEUTROPHILS # 5.3 10^3/uL (1.5-8.5); NEUTROPHILS % 68.5 % (36.0-66.0); PLATELET COUNT, AUTOMATED 287 10^3/uL (150-450); RED BLOOD COUNT 5.27 10^6/uL (4.00-5.40); WHITE BLOOD COUNT 7.7 10^3/uL (4.0-10.0)
[2024-10-09 17:49] LABS: C REACTIVE PROTEIN QUANTITATIV 0.87 MG/DL (<1.0)
[2024-10-09 17:50] LABS: BILIRUBIN,TOTAL 0.4 MG/DL (0.3-1.2); CREATININE FOR GFR 0.87 MG/DL (0.55-1.30); GLOMERULAR FILTRATION RATE 72.1 (>45); POTASSIUM SERUM 4.4 MMOL/L (3.5-5.1); TOTAL PROTEIN 6.6 G/DL (5.7-8.2)
== END ==
LOC: M LABDRAWC 13:44
PROVIDERS: ATTEND Internal Medicine Gastroenterology
DX: R19.7 Diarrhea, unspecified (principal); K50.80 Crohn's disease of both small and large intestine without complications

== ENCOUNTER → 2024-10-16 | Outpatient (CLI) | payer MEDICARE, BC | LOC: M WHC 13:50 | PROVIDERS: ATTEND Nurse Practitioner Family | DX: Z78.0 Asymptomatic menopausal state (principal); Z53.9 Procedure and treatment not carried out, unspecified reason ==

== ENCOUNTER → 2024-10-20 | Outpatient (CLI) | payer MEDICARE, BC | LOC: M CLY 13:17 | PROVIDERS: ATTEND Internal Medicine Pulmonary Disease | DX: J44.9 Chronic obstructive pulmonary disease, unspecified (principal) ==

== ENCOUNTER → 2024-12-14 | Outpatient (CLI) | payer MEDICARE, BC | LOC: M WUC 11:31 | PROVIDERS: ATTEND Nurse Practitioner Family | DX: M19.072 Primary osteoarthritis, left ankle and foot (principal); M25.572 Pain in left ankle and joints of left foot ==

== ENCOUNTER 2025-03-10 13:45 | Outpatient (CLI) | payer MEDICARE, BC ==
[~2025-03-10] VITALS: Ht 165.1 cm; Wt 120.5 kg
[~2025-03-10 13:45] MED LIST changes: +ALBUTEROL SULFATE 2.5 MG/0.5 ML INH CONCENTRATE NEB SOLN INH PRN; +EPINEPHrine INJ 1 MG/ML 1ML AMP IM PRN; +NS (Normal Saline) 0.9% 1,000 ML IV SCH; -ZOLP5TAB PO; +ZOLP5TAB9 PO; +diphenhydrAMINE 50 MG/ML VIAL IV PRN
[2025-03-10 14:00] VITALS: BP 123/71; O2SAT 92
[2025-03-10] MEDS: ACETAMINOPHEN 650MG PO PRIOR TO INFUSION PO ONE (14:16)
[2025-03-10] MEDS: USTEKINUMAB 520 MG in NS 146 ML IV ONE (14:58)
[2025-03-10 15:28] VITALS: BP 92/53; O2SAT 94
[2025-03-10 16:26] VITALS: BP 126/64; O2SAT 94
[2025-03-10 17:10] VITALS: BP 124/66; O2SAT 93
== END 2025-03-10 17:20 | disposition home or self-care (01) ==
LOC: M INFU 13:45
PROVIDERS: ATTEND Internal Medicine Gastroenterology
DX: K50.90 Crohn's disease, unspecified, without complications (principal); Z88.5 Allergy status to narcotic agent; Z88.8 Allergy status to other drugs, medicaments and biological substances
CPT/HCPCS: 96365; 96366; J2919; J3358

== ENCOUNTER → 2025-03-24 | Outpatient (REF) | payer MEDICARE, BC ==
[~2025-03-24] MED LIST changes: -ALBUTEROL SULFATE 2.5 MG/0.5 ML INH CONCENTRATE NEB SOLN INH PRN; -EPINEPHrine INJ 1 MG/ML 1ML AMP IM PRN; -NS (Normal Saline) 0.9% 1,000 ML IV SCH; -diphenhydrAMINE 50 MG/ML VIAL IV PRN
[2025-03-24 18:57] LABS: PLATELET COUNT, AUTOMATED 313 10^3/uL (150-450)
[2025-03-24 19:01] LABS: ALT/SGPT 20.0 U/L (7.0-40); AST/SGOT 20.0 U/L (<34); CALCIUM LEVEL 8.8 MG/DL (8.3-10.6); CARBON DIOXIDE LEVEL 33.0 MMOL/L (20-31); CHLORIDE LEVEL 102.0 MMOL/L (98-107); CHOLESTEROL LEVEL 166.0 MG/DL (<200); CHOLESTEROL RISK RATIO 2.26 (<5); CREATININE FOR GFR 1.13 MG/DL (0.55-1.30); GLOMERULAR FILTRATION RATE 52.3 (>39); IRON (FE) 42.0 UG/DL (50-170); LDL CHOLESTEROL 66.1 MG/DL (<100); NON-HDL-C 92.7 MG/DL; PERCENT SATURATION 12.3 % (13.2-45.0); POTASSIUM SERUM 4.4 MMOL/L (3.5-5.1); SODIUM LEVEL 143.0 MMOL/L (136-145); TRIGLYCERIDES LEVEL 133.0 MG/DL (<150)
[2025-03-24 19:10] LABS: ESTIMATED AVERAGE GLUCOSE 140.0 MG/DL (60-110)
== END ==
LOC: M SFHCCLAY 11:23
PROVIDERS: ATTEND Nurse Practitioner Family
DX: Z00.00 Encounter for general adult medical examination without abnormal findings (principal); D64.9 Anemia, unspecified; M17.12 Unilateral primary osteoarthritis, left knee; I50.32 Chronic diastolic (congestive) heart failure; J44.9 Chronic obstructive pulmonary disease, unspecified; E11.40 Type 2 diabetes mellitus with diabetic neuropathy, unspecified; I11.0 Hypertensive heart disease with heart failure; E55.9 Vitamin D deficiency, unspecified; E78.5 Hyperlipidemia, unspecified; K50.918 Crohn's disease, unspecified, with other complication; I48.91 Unspecified atrial fibrillation; K21.9 Gastro-esophageal reflux disease without esophagitis; I73.9 Peripheral vascular disease, unspecified

== ENCOUNTER → 2025-03-25 | Outpatient (REF) | payer MEDICARE, BC ==
[2025-03-25 18:59] LABS: IRON (FE) 57.0 UG/DL (50-170); PERCENT SATURATION 16.4 % (13.2-45.0)
== END ==
LOC: M LAB REF 17:01
PROVIDERS: ATTEND Nurse Practitioner Family
DX: D50.9 Iron deficiency anemia, unspecified (principal)